=== PATIENT | male | born 1965 | race Caucasian/White ===

== ENCOUNTER → 2020-09-02 | Outpatient (CLI) | payer BC ==
[2020-09-03 02:56] LABS: C Reactive Protein <0.4 mg/dL (0.0-0.8); Rheumatoid Factor, Qnt 4 IU/mL (0-15)
[2020-09-03 03:43] LABS: Cyclic Citrull Pep IgG Unit <0.5 U/mL; Cyclic Citrullinated Pep IgG NEGATIVE (NEGATIVE)
[2020-09-03 04:30] LABS: Hepatitis B Core IgM Non-Reactive (Non-Reactive); Hepatitis B Surface AB- Quant 3.5 mIU/mL; Hepatitis B Surface Antibody Non-Reactive (Non-Reactive); Hepatitis B Surface Antigen Non-Reactive (Non-Reactive); Hepatitis C IgG Antibody Non-Reactive (Non-Reactive)
== END | disposition home or self-care (01) ==
LOC: LABWHC1 13:59
PROVIDERS: ATTEND Physician Assistant Medical
DX: L40.50 Arthropathic psoriasis, unspecified (principal)
CPT/HCPCS: 36415; 85652; 86140; 86200; 86431; 86480; 86704; 86705; 86706; 86803; 87340

== ENCOUNTER 2023-12-26 16:41 | Inpatient (IN) | payer BC ==
--- NOTE | 2023-12-26 17:31 | ED ---
Neuro HPI - General Chief Complaint: Neuro Symptoms/Deficit Stated Complaint: pos stroke Time Seen by Provider: 12/26/23 17:06 Source: patient, family, RN notes reviewed, old records reviewed Mode of arrival: ambulatory Limitations: no limitations - History of Present Illness Is the patient presenting with stroke symptoms?: No -: minutes(s) Initial Comments: This is a 58-year-old male to the ER for evaluation he does have high blood pressure history coming in for evaluation of difficulty with speech difficulty with train of thought and left-sided arm and leg numbness. Patient symptoms are pretty significant here in the emergency prior to arrival in the emergency department but resolved on arrival to the emergency department. Patient did have significant paralysis of the left upper and left lower extremity as well as difficulty with speech and train of thought. Confusion. Those symptoms have resolved Location: speech, left arm, left leg History of same: No Place: home (Patient was at a restaurant) Severity: severe Improves With: none Worsens With: none Context: sudden onset Associated Symptoms: confusion Treatments Prior to Arrival: none - Related Data Home Medications: Home Medications Medication Instructions Recorded Confirmed Atorvastatin [Lipitor] 20 mg PO HS 02/24/15 12/26/23 Apremilast [Otezla] 30 mg PO BID 12/26/23 12/26/23 Mv-Min/Folic/K1/Lycopen/Lutein 1 tab PO DAILY 12/26/23 12/26/23 [Centrum Silver Men Tablet] Zinc Gluconate [Zinc] 50 mg PO DAILY 12/26/23 12/26/23 amLODIPine 10 mg PO HS 12/26/23 12/26/23 lisinopriL [Zestril] 20 mg PO DIRECTED 12/26/23 12/26/23 Allergies/Adverse Reactions: Allergies Allergy/AdvReac Type Severity Reaction Status Date / Time No Known Allergies Allergy Verified 12/26/23 18:42 Review of Systems ROS Statement: Those systems with pertinent positive or pertinent negative responses have been documented in the HPI. ROS Other: All systems not noted in ROS Statement are negative. General Exam Limitations: no limitations Stroke MDM - Lab Data Result diagrams: 12/29/23 09:20 12/29/23 10:26 Lab Results 12/26/23 12/26/23 12/26/23 Range/Units 16:50 16:50 16:50 WBC 6.4 (3.8-10.6) k/uL RBC 5.25 (4.30-5.90) m/uL Hgb 15.6 (13.0-17.5) gm/dL Hct 45.3 (39.0-53.0) % MCV 86.1 (80.0-100.0) fL MCH 29.6 (25.0-35.0) pg MCHC 34.4 (31.0-37.0) g/dL RDW 13.7 (11.5-15.5) % Plt Count 349 (150-450) k/uL MPV 7.2 Neutrophils % 62 % Lymphocytes % 27 % Monocytes % 6 % Eosinophils % 1 % Basophils % 1 % Neutrophils # 4.0 (1.3-7.7) k/uL Lymphocytes # 1.7 (1.0-4.8) k/uL Monocytes # 0.4 (0-1.0) k/uL Eosinophils # 0.1 (0-0.7) k/uL Basophils # 0.0 (0-0.2) k/uL PT 10.2 (10.0-12.5) sec INR 0.9 (<1.2) APTT 25.3 (22.0-30.0) sec Sodium 142 (137-145) mmol/L Potassium 4.0 (3.5-5.1) mmol/L Chloride 104 (98-107) mmol/L Carbon Dioxide 29 (22-30) mmol/L Anion Gap 9 mmol/L BUN 12 (9-20) mg/dL Creatinine 0.96 (0.66-1.25) mg/dL Est GFR (CKD-EPI)AfAm >90 (>60 ml/min/1.73 sqM) Est GFR (CKD-EPI)NonAf 87 (>60 ml/min/1.73 sqM) Glucose 121 H (74-99) mg/dL Calcium 10.6 H (8.4-10.2) mg/dL Total Bilirubin 0.8 (0.2-1.3) mg/dL AST 28 (17-59) U/L ALT 25 (4-49) U/L Alkaline Phosphatase 53 (38-126) U/L Creatine Kinase 136 (55-170) U/L Troponin I (0.000-0.034) ng/mL Total Protein 8.1 (6.3-8.2) g/dL Albumin 4.8 (3.5-5.0) g/dL 12/26/23 Range/Units 16:50 WBC (3.8-10.6) k/uL RBC (4.30-5.90) m/uL Hgb (13.0-17.5) gm/dL Hct (39.0-53.0) % MCV (80.0-100.0) fL MCH (25.0-35.0) pg MCHC (31.0-37.0) g/dL RDW (11.5-15.5) % Plt Count (150-450) k/uL MPV Neutrophils % % Lymphocytes % % Monocytes % % Eosinophils % % Basophils % % Neutrophils # (1.3-7.7) k/uL Lymphocytes # (1.0-4.8) k/uL Monocytes # (0-1.0) k/uL Eosinophils # (0-0.7) k/uL Basophils # (0-0.2) k/uL PT (10.0-12.5) sec INR (<1.2) APTT (22.0-30.0) sec Sodium (137-145) mmol/L Potassium (3.5-5.1) mmol/L Chloride (98-107) mmol/L Carbon Dioxide (22-30) mmol/L Anion Gap mmol/L BUN (9-20) mg/dL Creatinine (0.66-1.25) mg/dL Est GFR (CKD-EPI)AfAm (>60 ml/min/1.73 sqM) Est GFR (CKD-EPI)NonAf (>60 ml/min/1.73 sqM) Glucose (74-99) mg/dL Calcium (8.4-10.2) mg/dL Total Bilirubin (0.2-1.3) mg/dL AST (17-59) U/L ALT (4-49) U/L Alkaline Phosphatase (38-126) U/L Creatine Kinase (55-170) U/L Troponin I <0.012 (0.000-0.034) ng/mL Total Protein (6.3-8.2) g/dL Albumin (3.5-5.0) g/dL - NIH Stroke Scale 1a. Level of Consciousness: (0) alert 1b. LOC Questions: (0) answers correctly 1c. LOC Commands: (0) performs tasks correctly 2. Best Gaze: (0) normal 3. Visual: (0) no visual loss 4. Facial Palsy: (0) normal symmetrical movement 5a. Motor Arm Left: (0) no drift 5b. Motor Arm Right: (0) no drift 6a. Motor Leg Left: (0) no drift 6b. Motor Leg Right: (0) no drift 7. Limb Ataxia: (0) absent 8. Sensory: (0) normal 9. Best Language: (0) no aphasia 10. Dysarthria: (0) normal 11. Extinction/Inattention: (0) no abnormality - Thrombolytic Inclusion/Exclusion Thrombolytic Inclusion Criteria: Symptom Onset < 4.5 h - Medical Decision Making 58 male was found to have significant ICA occlusion after TIA, patient did complete and continues to have complete resolution of symptoms here in the ER but will be admitted for vascular surgery consultation - Radiology Data Radiology results: report reviewed (CT brain negative for acute disease CT head positive for ICA occlusion), image reviewed - EKG Data -: EKG Interpreted by Me (EKG is sinus 78 RI 140 QRS 102 QTc 414) Past Medical History Past Medical History: Osteoarthritis (OA) History of Any Multi-Drug Resistant Organisms: None Reported Past Surgical History: Orthopedic Surgery Additional Past Surgical History / Comment(s): arthroscopy knee Past Anesthesia/Blood Transfusion Reactions: No Reported Reaction Past Alcohol Use History: Occasional Past Drug Use History: None Reported - Past Family History Mother Family Medical History: Cancer Course Vital Signs 12/26/23 12/26/23 12/26/23 16:47 20:00 21:00 Temperature 98.1 F Pulse Rate 91 65 65 Respiratory 20 12 14 Rate Blood Pressure 174/103 137/98 153/94 O2 Sat by Pulse 99 99 Oximetry - Reevaluation(s) Reevaluation #1: 12/26/23 18:59 Medical record is reviewed Reevaluation #2: 12/26/23 18:59 Patient symptoms remain resolved Reevaluation #3: 12/26/23 18:59 Patient informed of results questions answered Reevaluation #4: Was pt. sent in by a medical professional or institution (, PA, CONCRETE SWIMMING POOL INSTALLER, urgent care, hospital, or detention...) When possible be specific @ -no Did you speak to anyone other than the patient for history (EMS, parent, family, police, friend...)? What history was obtained from this source @ -no Did you review nursing and triage notes (agree or disagree)? Why? @ -agree Are old charts reviewed (outside hosp., previous admission, EMS record, old EKG, old radiological studies, urgent care reports/EKG's, detention records)? Report findings @ -yes Differential Diagnosis (chest pain, altered mental status, abdominal pain women, abdominal pain men, vaginal bleeding, weakness, fever, dyspnea, syncope, headache, dizziness, GI bleed, back pain, seizure, CVA, palpatations, mental health, musculoskeletal)? @ -prior EKG interpreted by me (3pts min.). @ -yes X-rays interpreted by me (1pt min.). @ -no CT interpreted by me (1pt min.). @ -Yes significant for severe severe RCA occlusion U/S interpreted by me (1pt. min.). @ -no What testing was considered but not performed or refused? (CT, X-rays, U/S, labs)? Why? @ -none What meds were considered but not given or refused? Why? @ -none Did you discuss the management of the patient with other professionals (professionals i.e. , PA, CONCRETE SWIMMING POOL INSTALLER, lab, RT, psych nurse, social studies teacher, qa manager, teacher, ground intelligence officer, case packer and sealer)? Give summary @ -no Was smoking cessation discussed for >3mins.? @ -no Was critical care preformed (if so, how long)? @ -yes31 Were there social determinants of health that impacted care today? How? (Homelessness, low income, unemployed, alcoholism, drug addiction, transportatio n, low edu. Level, literacy, decrease access to med. care, skilled nursing, rehab)? @ -none Was there de-escalation of care discussed even if they declined (Discuss DNR or withdrawal of care, Hospice)? DNR status @ -no What co-morbidities impacted this encounter? (DM, HTN, Smoking, COPD, CAD, Cancer, CVA, ARF, Chemo, Hep., AIDS, mental health diagnosis, sleep apnea, morbid obesity)? @ -none Was patient admitted / discharged? Hospital course, mention meds given and route, prescriptions, significant lab abnormalities, going to OR and other pertinent info. @ - 58 male was found to have significant ICA occlusion after TIA, patient did complete and continues to have complete resolution of symptoms here in the ER but will be admitted for vascular surgery consultation Admitted Undiagnosed new problem with uncertain prognosis? @ -no Drug Therapy requiring intensive monitoring for toxicity (Heparin, Nitro, Insulin, Cardizem)? @ -no Were any procedures done? @ -no Diagnosis/symptom? @ -TIA with ICA occlusion Acute, or Chronic, or Acute on Chronic? @ -Acute Uncomplicated (without systemic symptoms) or Complicated (systemic symptoms)? @ -Complicated Side effects of treatment? @ -no Exacerbation, Progression, or Severe Exacerbation? @ -exacerbation Poses a threat to life or bodily function? How? (Chest pain, [place], [place], pneumonia, PE, COPD, DKA, ARF, appy, cholecystitis, CVA, Diverticulitis, Homicidal, Suicidal, threat to staff... and all critical care pts) @ -yes significant TIA with ICA occlusion Reevaluation #5: Differential CVA Ischemic stroke, hemorrhagic stroke, brain tumor, atypical migraine, Wernicke's encephalopathy, seizure, multiple sclerosis, meningitis, encephalitis, hypoglycemia, Guillain-Estrada, electrolytes disturbance, myasthenia gravis.... This is not meant to be an all-inclusive list - Consultations Consultation #1: Spoke with sound who agrees to admit this patient Critical Care Time Critical Care Time: Yes Total Critical Care Time: 31 Disposition Clinical Impression: Transient cerebral ischemia, ICAO (internal carotid artery occlusion) Disposition: ADMITTED IP TO THIS HOSP Condition: Fair Is patient prescribed a controlled substance at d/c from ED?: No Time of Disposition: 20:20
[2023-12-26 18:02] LABS: ALT 25 U/L (4-49); AST 28 U/L (17-59); African American GFR (CKD) >90 (>60 ml/min/1.73 sqM); Albumin 4.8 g/dL (3.5-5.0); Alkaline Phosphatase 53 U/L (38-126); Anion Gap 9 mmol/L; Basophils % (A) 1 %; Blood Urea Nitrogen 12 mg/dL (9-20); Calcium 10.6 mg/dL (8.4-10.2); Carbon Dioxide 29 mmol/L (22-30); Chloride 104 mmol/L (98-107); Creatine Kinase 136 U/L (55-170); Eosinophils # (A) 0.1 k/uL (0-0.7); Eosinophils % (A) 1 %; Glucose 121 mg/dL (74-99); HCT 45.3 % (39.0-53.0); HGB 15.6 gm/dL (13.0-17.5); Lymphocytes # (A) 1.7 k/uL (1.0-4.8); Lymphocytes % (A) 27 %; MCH 29.6 pg (25.0-35.0); MCHC 34.4 g/dL (31.0-37.0); MCV 86.1 fL (80.0-100.0); Mean Platelet Volume 7.2; Monocytes # (A) 0.4 k/uL (0-1.0); Monocytes % (A) 6 %; Neutrophils % (A) 62 %; Non-African American GFR(CKD) 87 (>60 ml/min/1.73 sqM); Platelet Count 349 k/uL (150-450); RBC 5.25 m/uL (4.30-5.90); RDW 13.7 % (11.5-15.5); Sodium 142 mmol/L (137-145); Total Bilirubin 0.8 mg/dL (0.2-1.3); Total Protein 8.1 g/dL (6.3-8.2); WBC 6.4 k/uL (3.8-10.6)
[2023-12-26 18:09] LABS: INR 0.9 (<1.2); Partial Thromboplastin Time 25.3 sec (22.0-30.0); Prothrombin Time 10.2 sec (10.0-12.5)
[2023-12-26] MEDS: SODIUM CHLORIDE 0.9% 1,000 ML IV STA (18:42)
--- NOTE | 2023-12-26 19:17 | CT ---
EXAMINATION TYPE: CT brain wo con CT DLP: 1111.6 mGycm, Automated exposure control for dose reduction was used. DATE OF EXAM: 12/26/2023 6:21 PM COMPARISON: None. CLINICAL INDICATION:Male, 58 years old with history of Neuro deficit, acute, stroke suspected, left s ided weakness, cva TECHNIQUE: Brain: Axial CT images of the brain were obtained with coronal and sagittal reformats created and rev iewed. Contrast used: None. Oral contrast used: None. FINDINGS: Extra-axial spaces: No abnormal extra-axial fluid collections. Ventricular system: Within normal limits. Cerebral parenchyma: No increased attenuation to suggest acute intraparenchymal hemorrhage. The gra y-white matter interface appears maintained. No significant atrophy. White matter unremarkable by C T. Cerebellum: No acute abnormality. Mass effect: No evidence of mass effect or midline shift. Intracranial vasculature: Unremarkable Soft tissues: No acute or concerning abnormality. Visualized orbits: Orbital contents appear grossly intact. Calvarium/osseous structures: No evidence of calvarial fracture. Paranasal sinuses and mastoid air cells: Clear. Mild nasal septal deviation towards the right at its midportion with small bony spur. MRI is more sensitive for detecting acute processes such as infarct, and may be considered if clinica lly warranted. IMPRESSION: No acute intracranial CT abnormality.
--- NOTE | 2023-12-26 19:55 | CT ---
EXAMINATION TYPE: CT angio head neck DATE OF EXAM: 12/26/2023 6:41 PM COMPARISON: . CLINICAL INDICATION:Male, 58 years old with history of Neuro deficit, acute, stroke suspected; PHH, l eft sided weakness, cva TECHNIQUE: Axially acquired helical CT angiogram of the head and neck was obtained with contrast. Axi al images are supplemented with 3D reconstructions which [facility] NASCET criteria used. Contrast used: 65ml mL of Isovue 370 with IV Contrast, Oral contrast used: None. CT DLP: 412.5 mGycm, Automated exposure control for dose reduction was used. FINDINGS: CTA Neck: There is a 4 vessel branch pattern. Brachiocephalic artery, left common carotid artery, left vertebra l artery, left subclavian artery. Atherosclerotic plaque is present in the aortic arch. There is no significant plaque or stenosis at the origins of the branch vessels. No aortic aneurysm or dissectio n. Right carotid system: The brachiocephalic artery is patent. There is mild calcification of the proxim al right subclavian artery without significant stenosis. The common carotid artery appears patent unt il the bifurcation. There is heavy mixed soft and calcified plaque which causes severe stenosis of th e proximal ICA. While difficult to determine with certainty, there is believed to be a tiny string si gn of preserved flow and after a length of about 9 mm, the vessel is again seen to be opacified and c ontinues to be to the skull base. ECA is patent. Left carotid system: The common carotid is patent to the bifurcation. The bifurcation is patent with small calcified plaque at the bifurcation and proximal ICA causing less than 50% diameter stenosis, h emodynamically insignificant. The vessels are patent to the skull base, and is larger in caliber than the right ICA. ECA is patent. Origin of the right vertebral shows small amount of calcified plaque without significant stenosis. Le ft vertebral arises from the arch without significant stenosis. Both vertebrals are then normally pat ent to the skull base. They are essentially codominant. Other: Neck soft tissues show no acute abnormality. Thyroid appears somewhat heterogeneous with sever al hypodense micronodules throughout and a coarse calcification on the right. Airway is patent. There are moderate degenerative changes of the cervical spine without suggestion of acute bony abnormality or critical canal stenosis. Remote appearing compression fracture deformity of T4 with mild/moderate anterior wedging. Straightening with mild reversal of the normal cervical lordosis is likely degener ative. Included lung apices show no acute abnormality. CTA Head: The intracranial vertebral arteries are patent, essentially codominant. Basilar artery is unremarkabl e. The bifurcation is patent and shows no evidence of aneurysm. Bilateral corporation secretary are patent as seen. Th ere are small patent bilateral posterior communicating arteries. Mild calcifications of the siphon portions of the ICAs without significant stenosis seen. Bilateral c arotid termini are patent, bilateral ACAs are patent but the A1 segment on the right is slightly smal ler than the left. There is a widely patent anterior communicating artery. The ACAs are thereafter no rmally patent. On the left, there appear to be essentially duplicated MCA's, one appears to arise fro m the terminus and one appears to arise from the proximal KAJAL. Both of these appear patent with unrem arkable distal arborization pattern. On the right, the MCA M1 segment is patent. The M2, M3, M4 segme nts appear to be patent and enhancing. An inferior cortical branch is less well visualized but appear s to be patent. No intracranial large vessel occlusion, hemodynamically significant stenosis, aneurysm, dissection, o r arteriovenous malformation is shown. The dural venous sinuses appear grossly patent without evidence of thrombosis. Other: Please refer to same-day CT head report.. IMPRESSION: CTA neck: 1. Heavy mixed calcified plaque in the proximal right ICA, appears nearly occlusive with minimal rem aining string of flow believed to present. Recommend vascular surgery consultation as soon as possibl e. 2. Mild mostly calcified plaque in the proximal left ICA without significant stenosis. 3. No evidence of dissection or pseudoaneurysm in the carotid or vertebral arteries in the neck. CTA head: 1. No intracranial large vessel occlusion, significant stenosis, or sizable aneurysm detected in the limits of CTA.
[2023-12-26] MEDS: ASPIRIN 325 MG TAB PO STA (21:03)
[2023-12-26] MEDS: ASPIRIN 325 MG TAB PO SCH (21:03)
[2023-12-26] MEDS: SODIUM CHLORIDE 0.9% 1,000 ML IV SCH (21:04)
[2023-12-26] MEDS: ATORVASTATIN 80 MG TAB PO SCH (21:07)
[2023-12-27] MEDS: TICAGRELOR 90 MG TAB PO STA (00:05)
--- NOTE | 2023-12-27 04:51 | P.HPIM ---
History of Present Illness H&P Date: 12/26/23 Chief Complaint: Concern regarding stroke 58-year-old male with hypertension Patient was at home reading a book when suddenly in the evening he had an episode where he describes his whole left side was seizing and cramping along with some slurred speech and word finding difficulties all lasted less than 1 minute upon mentioning that his she notified EMS upon their arrival he was evaluated given the option of being taken to the hospital or family takes him to the hospital he decided to go with his and was brought in here for evaluation. Patient denies any headache double vision changes in hearing denies any chest pain trouble breathing nausea vomiting denies any abdominal pain changes in bowel or urinary habits. Patient denies any falls or head injury. Denies any history of stroke or heart attack. Patient reports that symptoms completely resolved after [address] imaging done in the ED for code stroke showed nearly occluded proximal right ICA Patient denies tobacco smoking illicit drugs or heavy alcohol review of systems Pertinent positives as noted in HPI. All other systems were reviewed and are negative on exam Constitutional: No acute distress, conversant, pleasant Eyes: Anicteric sclerae, moist conjunctiva, Pupils equal round reactive to light ENMT: NC/AT Oropharynx clear, no erythema, or exudates Neck: Supple, no masses, or JVD No carotid bruits No thyromegaly Lungs: Clear to auscultation Clear to percussion Normal respiratory effort, no accessory muscle use Cardiovascular: Heart regular in rate and rhythm, No murmurs, gallops, or rubs No peripheral edema Abdominal: Soft Nontender, no guarding, rebound or rigidity Abdomen moving with respiration Normoactive bowel sounds Extremities: No digital cyanosis No clubbing Pedal pulses intact and symmetrical Radial pulses intact and symmetrical No calf tenderness Psychiatric: Alert and oriented to person, place and time Appropriate affect fair judgement Neuro Muscles Strength 5/5 in all 4 extremities Sensation to light touch grossly present throughout Cranial nerves II-XII grossly intact Finger-nose exam intact heel aguilar exam intact Past Medical History Past Medical History: Osteoarthritis (OA) History of Any Multi-Drug Resistant Organisms: None Reported Past Surgical History: Orthopedic Surgery Additional Past Surgical History / Comment(s): arthroscopy knee Past Anesthesia/Blood Transfusion Reactions: No Reported Reaction Past Alcohol Use History: Occasional Past Drug Use History: None Reported - Past Family History Mother Family Medical History: Cancer Medications and Allergies Home Medications Medication Instructions Recorded Confirmed Type Atorvastatin [Lipitor] 20 mg PO HS 02/24/15 12/26/23 History Apremilast [Otezla] 30 mg PO BID 12/26/23 12/26/23 History Mv-Min/Folic/K1/Lycopen/Lutein 1 tab PO DAILY 12/26/23 12/26/23 History [Centrum Silver Men Tablet] Zinc Gluconate [Zinc] 50 mg PO DAILY 12/26/23 12/26/23 History amLODIPine 10 mg PO HS 12/26/23 12/26/23 History lisinopriL [Zestril] 20 mg PO DIRECTED 12/26/23 12/26/23 History Allergies Allergy/AdvReac Type Severity Reaction Status Date / Time No Known Allergies Allergy Verified 12/26/23 18:42 Physical Exam Vitals: Vital Signs Temp Pulse Resp BP Pulse Ox 12/26/23 16:47 98.1 F 91 20 174/103 99 Intake and Output 12/26/23 12/26/23 12/26/23 06:59 14:59 22:59 Other: Weight 70.307 kg Results CBC & Chem 7: 12/26/23 16:50 12/26/23 16:50 Labs: Abnormal Lab Results - Last 24 Hours (Table) 12/26/23 Range/Units 16:50 Glucose 121 H (74-99) mg/dL Calcium 10.6 H (8.4-10.2) mg/dL Assessment and Plan Assessment: 58-year-old male with hypertension coming in for evaluation of sudden onset left-sided cramping and slurred speech symptoms has resolved after 1 minute I discussed case with ED doctor and accepted the admission for TIA for further neurologic workup with anticipated length stay less than [address] of the brain showed no acute intracranial pathology CT of the head and neck showed near occlusion of the right internal carotid artery Vascular surgery consult Neurology consult Check echocardiogram Check lipid profile Aspirin and statin Fall precautions PT/OT eval Monitor vital signs Cardiac monitoring Hypercalcemia Calcium 10.6 Continue with IV fluid hydration normal saline 100 cc/h Follow-up levels in the morning if continues to be elevated consider further workup Full code DVT prophylaxis heparin subcu 3 times daily Rest of the blood work overall unremarkable Hemoglobin 15.6 white count 6.4 BUN 12 creatinine 0.96
[2023-12-27] MEDS: CLOPIDOGREL 75 MG TAB PO SCH (07:49)
[2023-12-27] MEDS: lisinopriL 20 MG TAB PO SCH (07:49)
[2023-12-27] MEDS ORDERED: HEPARIN SODIUM 1,000 UN/ML (10ML VL) IV PRN (08:29)
[2023-12-27] MEDS: HEPARIN SODIUM 1,000 UN/ML (10ML VL) IV ONE (08:51)
[2023-12-27] MEDS: ASPIRIN 81 MG PO SCH (08:51)
[2023-12-27] MEDS: HEPARIN SOD,PORK IN 0.45% NACL 25,000 UNIT in 0.45% NACL 1 250ML.BAG IV SCH (08:52)
[2023-12-27] MEDS ORDERED: ENOXAPARIN 40 MG/0.4 ML SYRINGE SQ SCH (09:00)
--- NOTE | 2023-12-27 09:19 | US ---
EXAMINATION TYPE: US carotid duplex BILAT DATE OF EXAM: 12/27/2023 COMPARISON: CLINICAL INDICATION: Male, 58 years old with history of evaluate for right ICA stenosis, occlusion; L eft side tingling yesterday. No hx TIA. HTN on meds. Nonsmoker. TECHNIQUE: Carotid duplex ultrasound examination. Indirect Doppler criteria was utilized. FINDINGS: EXAM MEASUREMENTS: RIGHT: Peak Systolic Velocity (PSV) cm/sec ----- Right CCA: 52.3 ----- Right ICA: 113.4 ----- Right ECA: 105.6 ICA/CCA ratio: 2.2 RIGHT: End Diastole cm/sec ----- Right CCA: 7.8 ----- Right ICA: 33.1 ----- Right ECA: 17.6 LEFT: Peak Systolic Velocity (PSV) cm/sec ----- Left CCA: 71.3 ----- Left ICA: 91.9 ----- Left ECA: 110.8 ICA/CCA ratio: 1.3 LEFT: End Diastole cm/sec ----- Left CCA: 23.0 ----- Left ICA: 39.1 ----- Left ECA: 20.4 VERTEBRALS (direction of flow): Right Vertebral: Antegrade Left Vertebral: Antegrade Rhythm: Normal RFID STRATEGIST NOTES: No elevated velocities. Plaque seen bilateral bulbs extending into proximal ICA. IMPRESSION: Less than 50% stenosis of the bilateral carotid bifurcations. Criteria for Assigning % of Stenosis / Diameter reduction (Estimation based on the indirect measurements of the internal carotid artery velocities (ICA PSV). 1. Normal (no stenosis)=ICA PSV < 125 cm/s: ratio < 2.0: ICA EDV<40 cm/s. 2. Less than 50% stenosis=ICA PSV < 125 cm/s: ratio < 2.0: ICA EDV<40 cm/s. 3. 50 to 69% stenosis=ICA PSV of 125 to 230 cm/s: ration 2.0 ? 4.0: ICA EDV 40-100 cm/s. 4. Greater than 70% stenosis to near occlusion= ICA PSV > 230 cm/s: ratio > 4.0: ICA EDV > 100 cm/s. 5. Near occlusion= ICA PSV velocities may be low or undetectable: variable ratio and ICA EDV. 6. Total occlusion=unable to detect flow.
[2023-12-27 09:31] LABS: Basophils % (A) 1 %; Eosinophils # (A) 0.1 k/uL (0-0.7); Eosinophils % (A) 1 %; HCT 43.8 % (39.0-53.0); HGB 14.7 gm/dL (13.0-17.5); Lymphocytes # (A) 1.3 k/uL (1.0-4.8); Lymphocytes % (A) 23 %; MCH 29.1 pg (25.0-35.0); MCHC 33.4 g/dL (31.0-37.0); MCV 87.1 fL (80.0-100.0); Mean Platelet Volume 7.3; Monocytes # (A) 0.3 k/uL (0-1.0); Monocytes % (A) 6 %; Neutrophils # (A) 3.7 k/uL (1.3-7.7); Neutrophils % (A) 67 %; Platelet Count 337 k/uL (150-450); RBC 5.03 m/uL (4.30-5.90); RDW 13.8 % (11.5-15.5); WBC 5.6 k/uL (3.8-10.6)
[2023-12-27 09:44] LABS: ALT 22 U/L (4-49); AST 29 U/L (17-59); African American GFR (CKD) >90 (>60 ml/min/1.73 sqM); Albumin 4.2 g/dL (3.5-5.0); Alkaline Phosphatase 60 U/L (38-126); Anion Gap 10 mmol/L; Blood Urea Nitrogen 13 mg/dL (9-20); Calcium 9.6 mg/dL (8.4-10.2); Carbon Dioxide 19 mmol/L (22-30); Chloride 109 mmol/L (98-107); Glucose 152 mg/dL (74-99); Magnesium 2.2 mg/dL (1.6-2.3); Non-African American GFR(CKD) >90 (>60 ml/min/1.73 sqM); Potassium 3.6 mmol/L (3.5-5.1); Sodium 138 mmol/L (137-145); Total Bilirubin 1.2 mg/dL (0.2-1.3); Total Protein 7.2 g/dL (6.3-8.2)
[2023-12-27 10:04] LABS: INR 1.1 (<1.2); Prothrombin Time 11.9 sec (10.0-12.5)
[2023-12-27 10:27] LABS: Partial Thromboplastin Time >200.0 sec (22.0-30.0)
--- NOTE | 2023-12-27 12:19 | P.GSCN ---
History of Present Illness Consult date: 12/27/23 Reason for Consult: ICA occlusion Requesting physician: Brian Omer History of present illness: This is a pleasant 58-year-old male with a past medical history including hypertension and psoriatic arthritis. Patient presented to the emergency department yesterday evening with complaints of left-sided weakness and difficulty with speech. Symptoms had resolved by the time he reached the emergency department. He underwent CT of the brain with no acute findings. Also had a CT angiogram head and neck that showed possible occlusion to severe ICA stenosis of the right internal carotid artery. Vascular surgery was consulted for ICA occlusion. Patient currently denies any focal deficits. He is alert and oriented x 3. Speech is normal, he is able to follow commands. He does state that he takes Otezla for psoriatic arthritis. He has a history of hypertension which he has had for many years. States he has never been a smoker. Denies any previous history of TIA or stroke. Denies any shortness of breath, chest pain, abdominal pain, nausea or vomiting. Review of Systems A 14 point review systems was completed all pertinent positives and negatives as stated in the HPI. Past Medical History Past Medical History: Osteoarthritis (OA) History of Any Multi-Drug Resistant Organisms: None Reported Past Surgical History: Orthopedic Surgery Additional Past Surgical History / Comment(s): arthroscopy knee Past Anesthesia/Blood Transfusion Reactions: No Reported Reaction Past Alcohol Use History: Occasional Past Drug Use History: None Reported - Past Family History Mother Family Medical History: Cancer Medications and Allergies Home Medications Medication Instructions Recorded Confirmed Type Atorvastatin [Lipitor] 20 mg PO HS 02/24/15 12/26/23 History Apremilast [Otezla] 30 mg PO BID 12/26/23 12/26/23 History Mv-Min/Folic/K1/Lycopen/Lutein 1 tab PO DAILY 12/26/23 12/26/23 History [Centrum Silver Men Tablet] Zinc Gluconate [Zinc] 50 mg PO DAILY 12/26/23 12/26/23 History amLODIPine 10 mg PO HS 12/26/23 12/26/23 History lisinopriL [Zestril] 20 mg PO DIRECTED 12/26/23 12/26/23 History Allergies Allergy/AdvReac Type Severity Reaction Status Date / Time No Known Allergies Allergy Verified 12/26/23 18:42 Surgical - Exam Vital Signs Temp Pulse Resp BP Pulse Ox 98.1 F 91 20 174/103 99 12/26/23 16:47 12/26/23 16:47 12/26/23 16:47 12/26/23 16:47 12/26/23 16:47 General appearance: The patient is alert, oriented, appears in no acute distress. HET: Head is normocephalic and atraumatic. Pupils are equal and reactive. Neck: Supple. No carotid bruit. Heart: Regular. Lungs: Equal expansion, normal respiratory effort. Abdomen: Soft, nontender, nondistended. Extremities: Normal skin color and turgor. Palpable DP pulses. Neurological: No focal deficits. Strength and sensation are grossly intact. Results - Labs 12/27/23 08:59 12/27/23 08:59 Abnormal Lab Results - Last 24 Hours (Table) 12/26/23 Range/Units 16:50 Glucose 121 H (74-99) mg/dL Calcium 10.6 H (8.4-10.2) mg/dL Diabetes panel 12/26/23 Range/Units 16:50 Sodium 142 (137-145) mmol/L Potassium 4.0 (3.5-5.1) mmol/L Chloride 104 (98-107) mmol/L Carbon Dioxide 29 (22-30) mmol/L BUN 12 (9-20) mg/dL Creatinine 0.96 (0.66-1.25) mg/dL Glucose 121 H (74-99) mg/dL Calcium 10.6 H (8.4-10.2) mg/dL AST 28 (17-59) U/L ALT 25 (4-49) U/L Alkaline Phosphatase 53 (38-126) U/L Total Protein 8.1 (6.3-8.2) g/dL Albumin 4.8 (3.5-5.0) g/dL Calcium panel 12/26/23 Range/Units 16:50 Calcium 10.6 H (8.4-10.2) mg/dL Albumin 4.8 (3.5-5.0) g/dL Pituitary panel 12/26/23 Range/Units 16:50 Sodium 142 (137-145) mmol/L Potassium 4.0 (3.5-5.1) mmol/L Chloride 104 (98-107) mmol/L Carbon Dioxide 29 (22-30) mmol/L BUN 12 (9-20) mg/dL Creatinine 0.96 (0.66-1.25) mg/dL Glucose 121 H (74-99) mg/dL Calcium 10.6 H (8.4-10.2) mg/dL Adrenal panel 12/26/23 Range/Units 16:50 Sodium 142 (137-145) mmol/L Potassium 4.0 (3.5-5.1) mmol/L Chloride 104 (98-107) mmol/L Carbon Dioxide 29 (22-30) mmol/L BUN 12 (9-20) mg/dL Creatinine 0.96 (0.66-1.25) mg/dL Glucose 121 H (74-99) mg/dL Calcium 10.6 H (8.4-10.2) mg/dL Total Bilirubin 0.8 (0.2-1.3) mg/dL AST 28 (17-59) U/L ALT 25 (4-49) U/L Alkaline Phosphatase 53 (38-126) U/L Total Protein 8.1 (6.3-8.2) g/dL Albumin 4.8 (3.5-5.0) g/dL - Imaging Comments: CTA head and neck reports heavy mixed calcified plaque in the proximal right ICA, appears nearly occlusive with minimal remaining string of flow believed to be present. Recommend vascular surgery consultation is soon as possible. Mild mostly calcified plaque in the proximal left ICA without significant stenosis. No evidence of dissection or pseudoaneurysm in the carotid or vertebral arteries in the neck. CT head reported no intracranial large vessel occlusion, significant stenosis or sizable aneurysm detected in the limits of the CTA Brain CT reports no acute intracranial CT abnormality. Carotid duplex reports less than 50% stenosis of bilateral carotid bifurcations Assessment and Plan Assessment: 1. Severe symptomatic right internal carotid artery stenosis per CT angiogram 2. Discordant findings of carotid stenosis on carotid duplex 3. Left-sided weakness and difficulty with speech, possible TIA 4. Hypertension 5. Psoriatic arthritis Plan: 1. Carotid duplex ordered 2. Heparin drip started 3. Continue aspirin and Plavix as ordered 4. Patient tentatively scheduled for right carotid endarterectomy with patch angioplasty on 12/31/2023 5. Continue with recommendations from neurology 6. Rest of medical management per primary medical team Thank you for this consultation, we will continue to follow. The impression and plan of care has been dictated as directed. I performed a history and examination of this patient, discussed the same with the dictator. I agree with the dictator's note ,documented as a scribe. Any additional findings or plans will be noted.
--- NOTE | 2023-12-27 12:35 | CA ---
Transthoracic Echo Report Name: Mitchell Ku Age: 58 Gender: M : 1965 Exam Date: 12/27/2023 09:22 Exam Location: [facility] Ht (in): 66 Wt (lb): 155 Ordering Physician: Lilibeth Corcoran MD Attending/Referring Phys: [employer] Lieutenant Deon Crocker RDCS Procedure CPT: Indications: tia Cardiac Hx: Technical Quality: Contrast 1: Total Dose (mL): Contrast 2: Total Dose (mL): MEASUREMENTS (Male / Female) Normal Values 2D ECHO LV Diastolic Diameter PLAX 4.2 cm 4.2 - 5.9 / 3.9 - 5.3 cm LV Systolic Diameter PLAX 3.0 cm IVS Diastolic Thickness 1.2 cm 0.6 - 1.0 / 0.6 - 0.9 cm LVPW Diastolic Thickness 0.7 cm 0.6 - 1.0 / 0.6 - 0.9 cm LV Relative Wall Thickness 0.5 LA Systolic Diameter LX 2.9 cm 3.0 - 4.0 / 2.7 - 3.8 cm DOPPLER AV Peak Velocity 142.2 cm/s AV Peak Gradient 8.1 mmHg AV Mean Velocity 93.0 cm/s AV Mean Gradient 3.7 mmHg AV Velocity Time Integral 24.0 cm LVOT Peak Velocity 117.9 cm/s LVOT Peak Gradient 5.6 mmHg LVOT Velocity Time Integral 25.3 cm MV Area PHT 4.1 cm??? Mitral E Point Velocity 91.7 cm/s Mitral A Point Velocity 78.3 cm/s Mitral E to A Ratio 1.2 MV Deceleration Time 183.7 ms FINDINGS Left Ventricle Mildly increased septal wall thickness. Left ventricular ejection fraction is estimated at 55 %. Normal left ventricular systolic function with no obvious regional wall motion abnormalities. Right Ventricle Normal right ventricular size. Right Atrium Normal right atrial size. Left Atrium Normal left atrial size. Mitral Valve Trace mitral regurgitation. Aortic Valve No aortic valve stenosis or regurgitation. Tricuspid Valve Trace tricuspid regurgitation. Pulmonic Valve No pulmonic regurgitation. Pericardium No pericardial effusion. Aorta Normal size aortic root and proximal ascending aorta. CONCLUSIONS Left ventricular EF 55% Trace mitral regurgitation Trace tricuspid regurgitation No pericardial effusion Previewed by: Dr. Elvis Gong DO (Electronically Signed) Final Date: 27 December 2023 12:35
--- NOTE | 2023-12-27 14:44 | P.PN ---
Subjective Progress Note Date: 12/27/23 Hospital course: Patient is a very pleasant 58-year-old male with a past medical history of hypertension, hyperlipidemia, and psoriatic arthritis. He presented to the emergency department on 12/26/2023 with a chief complaint of left upper and lower extremity numbness and cramping along with slurred speech and word finding difficulties. He underwent evaluation in the emergency department. Vital signs upon arrival show blood pressure 174/103, heart rate 91, respiratory rate 20, temp 98.1 F, and SpO2 of 99% on room air. Blood glucose upon arrival was 121. EKG completed showing normal sinus rhythm at 78 bpm with pronounced Q waves in leads II, III, and aVF. CT brain completed negative for acute intracranial abnormality. Labs completed and reviewed. CBC, coagulation profile, and BMP were unremarkable. Calcium was mildly elevated at 10.6. Liver profile unremarkable. Creatinine kinase 136. Troponin negative at less than 0.012. CTA head and neck completed. CTA head was reported negative for acute intracranial large vessel occlusion, significant stenosis, or sizable aneurysm. CTA neck showing heavily mixed calcified plaque in the proximal right ICA appears nearly occlusive with minimal remaining string of flow believed to be present, mild mostly calcified plaque in the proximal left ICA without significant stenosis, and no evidence of dissection or pseudoaneurysm in the carotid vertebral arteries. Patient was admitted under our services with consultation to neurology and vascular surgery. Physical exam: Patient seen and fully evaluated at the bedside this morning. He was sitting up in the chair and appears to be doing well. Patient denies having any further episodes of left-sided weakness or difficulties with his speech including word finding difficulties. Patient denies having any headache, lightheadedness, dizziness, changes in vision or hearing, chest pain or palpitations, shortness of breath, or experiencing any numbness/tingling/weakness at this time. Vital signs reviewed and stable. General: Nontoxic, no distress and appears stated age. Derm: Skin warm and dry, normal coloration for ethnicity. Head: Atraumatic, normocephalic and symmetric. Eyes: EOMs intact, no lid lag, and anicteric sclera Mouth: no lip lesions, mucus membranes moist Cardiovascular: regular rate and rhythm with normal S1S2, no murmur, positive posterior tibial pulses bilaterally, and cap refill < 2 seconds. Lungs: Respirations even, regular, and unlabored on room air. Lungs CTA bilaterally, no rhonchi, no rales, no wheezing, and no accessory muscle usage. Abdominal: soft, nontender to palpation, no guarding, no appreciable organomegaly Ext: ROM intact. No gross muscle atrophy, no edema, no contractures Neuro: Speech clear, face symmetrical and CN II-XII grossly intact with no noted focal neuro deficits Psych: Alert and oriented to person, place, time, and situation. Appropriate and pleasant affect. Assessment and Plan of Care: Transient episode of left-sided weakness with dysarthria and expressive aphasia, likely TIA Right ICA occlusion -Consult neurology, appreciate recommendations -Vascular surgery following and started patient on heparin infusion along with a spirin and Plavix daily. Tentative plan for right carotid endarterectomy on 12/31/2023. -Carotid Dopplers completed pending results -Echocardiogram revealing a preserved EF of 55% with trace mitral and trace tricuspid regurgitation no pericardial effusion and no other valvular or structural abnormalities reported. -NIH stroke scale with neuro checks every 4 hours and as needed -Daily aspirin 81 mg and atorvastatin 80 mg nightly. -PT/OT consult -Consult to speech and language pathologist. Swallow evaluation. -Fall precautions and provide pt with assistance as needed Hypercalcemia, resolved -Hypercalcemia resolved after gentle IV fluid hydration with repeat calcium level of 9.6. IV fluids discontinued at this time. Hypertension -Continue daily medication regimen with lisinopril 20 mg daily and amlodipine 10 mg nightly. Hyperlipidemia -Continue atorvastatin 80 mg nightly and obtain a lipid profile. Psoriatic arthritis -Hold Otezla at this time. Presurgical clearance -METS score is greater than 4 as patient is able to perform ADLs independently and walk 1-2 blocks and/or up 1 flight of stairs without chest pain or shortness of breath. -NSQIP surgical risk score was calculated. Patient is at a below average risk for serious complication with a risk of 2.2% and average risk of 5.6%, below average risk for cardiac complication with a risk of 0.2% and average risk of 1.1% and below average risk of at 0.1% with average risk being 0.7%. -Echocardiogram, EKG, vitals and laboratory analysis reviewed along with review of patient's history. -Patient is medically optimized and cleared from medical perspective to proceed with planned Right Carotid Endarterectomy without further need of testing or intervention at this time. Data and imaging reviewed: Morning labs reviewed. CBC unremarkable. BMP showing elevated chloride of 109 and bicarb of 19. Hemoglobin A1c 5.6%. Magnesium normal findings at 2.2. Liver profile unremarkable. TSH normal findings at 3.000. Vital signs reviewed. Blood pressure 138/91, heart rate 60, respiratory rate 18, temp 97.9 F, and SpO2 of 99% on room air. Echocardiogram revealing a preserved EF of 55% with trace mitral and trace tricuspid regurgitation no pericardial effusion and no other valvular or structural abnormalities reported. CODE STATUS: Full code DVT prophylaxis: Lovenox Anticipated discharge date: Clinical course to determine Anticipated discharge place: Home Patient was seen independently by Nurse Pracitioner. This document was prepared using [employer] dictation software. Please allow for errors in emergency room nurse, while rare they do occur. Gil Peña NP rendered care for this patient independently, reviewed the findings and plan as documented in the note above. I did not physically speak with or examine the patient on this date. Objective - Vital Signs Vital signs: Vital Signs Temp 98.1 F 12/26/23 16:47 Pulse 60 12/27/23 03:15 Resp 16 12/27/23 03:15 BP 131/83 12/27/23 03:15 Pulse Ox 99 12/27/23 03:15 FiO2 Intake & Output 12/26/23 12/27/23 12/27/23 18:59 06:59 18:59 Weight 70.307 kg 70.307 kg Other: Voiding Method Toilet # Voids 2 - Labs CBC & Chem 7: 12/28/23 09:12 12/27/23 08:59 Labs: Abnormal Lab Results - Last 24 Hours (Table) 12/26/23 Range/Units 16:50 Glucose 121 H (74-99) mg/dL Calcium 10.6 H (8.4-10.2) mg/dL
--- NOTE | 2023-12-27 15:04 | P.CNNES ---
History of Present Illness Consult date: 12/27/23 Requesting physician: Lilibeth Corcoran Reason for Consult: TIA History of Present Illness: Patient is a 58-year-old right-handed male with history of hypertension, hyperlipidemia, came to the hospital yesterday at 4:41 PM for possible TIA. Patient states that yesterday at around 4 PM, he was sitting, reading when he coleman ddenly felt funny, lightheaded, and had a blood rash to his head. Shortly after his left side of the body stopped working, states "seized up". There was no pain but he could not move his left side for about 30 seconds. He tried to talk, was able to talk but it was a struggle. This lasted for another 10 seconds. He also felt hard time breathing through the episode, like he was "gasping for breath". Then he started feeling better. Overall this episode lasted no more than 30 to 45 seconds. He told his , who called the paramedics. When they arrived, all symptoms have resolved. They recommended patient to go to the hospital. Vital signs arrival blood pressure 174/103, which came down to 137/98, pulse rate 91 temperature 98.1. Blood test shows normal CBC PT PTT, normal CMP,'s amaya cium was 10.6 but came down to 9.6. Troponin is negative, TSH normal. EKG shows sinus rhythm. CT head showed no acute intracranial abnormality. I personally reviewed CT head, and there is some suspicious area of hypodensity in the left occipital region. It could be artifactual. There is opacification of the left frontal sinus and some left ethmoid air cells. Patient has history of hypertension for which she takes amlodipine 10 mg. Just yesterday morning he had an appointment with his primary physician, his blood pressure was running high 157/102, and he was started on lisinopril 20 mg which she has not started yet. Patient has hyperlipidemia, on Lipitor 20 mg. Patient does not take any antiplatelet medication. He does have psoriatic arthritis. Patient drinks about 2 beers per day. Denies any heavy alcoholism. Denies any marijuana use. No diabetes. No history of strokes or TIA or seizure. Review of Systems Constitutional: Denies chills, Denies fever Eyes: denies blurred vision, denies diplopia, denies pain, denies loss of peripheral vision Ears: deny: decreased hearing, ear discharge Ears, nose, mouth and throat: Denies headache, Denies sore throat, Denies vertigo Cardiovascular: Reports lightheadedness (with spell, gone now), Denies chest pain, Denies shortness of breath Respiratory: Denies cough, Denies excessive sputum Gastrointestinal: Denies abdominal pain, Denies diarrhea, Denies nausea, Denies vomiting Genitourinary: Denies incontinence, Denies urinary frequency Musculoskeletal: Denies low back pain, Denies neck pain Integumentary: Denies pruritus, Denies rash Neurological: Reports as per HPI Psychiatric: Denies anxiety, Denies depression Hematologic/Lymphatic: Denies easy bleeding, Denies easy bruising Past Medical History Past Medical History: Osteoarthritis (OA) History of Any Multi-Drug Resistant Organisms: None Reported Past Surgical History: Orthopedic Surgery Additional Past Surgical History / Comment(s): arthroscopy knee Past Anesthesia/Blood Transfusion Reactions: No Reported Reaction Past Alcohol Use History: Occasional Past Drug Use History: None Reported - Past Family History Mother Family Medical History: Cancer Medications and Allergies Home Medications Medication Instructions Recorded Confirmed Type Atorvastatin [Lipitor] 20 mg PO HS 02/24/15 12/26/23 History Apremilast [Otezla] 30 mg PO BID 12/26/23 12/26/23 History Mv-Min/Folic/K1/Lycopen/Lutein 1 tab PO DAILY 12/26/23 12/26/23 History [Centrum Silver Men Tablet] Zinc Gluconate [Zinc] 50 mg PO DAILY 12/26/23 12/26/23 History amLODIPine 10 mg PO HS 12/26/23 12/26/23 History lisinopriL [Zestril] 20 mg PO DIRECTED 12/26/23 12/26/23 History Allergies Allergy/AdvReac Type Severity Reaction Status Date / Time No Known Allergies Allergy Verified 12/26/23 18:42 Physical Examination - Vital Signs Vital Signs: Vital Signs Temp Pulse Pulse Resp BP BP Pulse Ox 12/27/23 09:06 99 12/27/23 08:00 97.9 F 60 18 138/91 99 12/27/23 03:15 60 16 131/83 99 12/27/23 00:00 58 L 16 150/90 98 12/26/23 21:30 69 18 169/89 12/26/23 21:00 65 14 153/94 99 12/26/23 20:00 65 12 137/98 12/26/23 16:47 98.1 F 91 20 174/103 99 Intake and Output 12/26/23 12/27/23 12/27/23 22:59 06:59 14:59 Intake Total 118 Balance 118 Intake: Oral 118 Other: Voiding Method Toilet Toilet Toilet # Voids 2 Weight 70.307 kg Patient is very pleasant middle-aged male, in no acute distress. Patient is alert awake oriented to time place and person. Speech and language functions are normal. Patient can name and repeat very well. No aphasia or dysarthria. Attention, concentration and fund of knowledge is adequate. On cranial nerve examination, pupils are equal, round and reacting to light, visual kenney are full on confrontation, with no neglect on double simultaneous stimulation. Extraocular muscles are intact with no nystagmus. Face is symmetric, tongue protrudes to the midline. Palatal elevation and sensation normal, hearing and shoulder shrug normal, facial sensation normal. On muscle strength testing, there is no pronator drift and the strength is n ormal in arms and legs distally and proximally. Deep tendon reflexes are (right/left) biceps 1/1, brachioradialis 1/1, knees 2/2+, ankles 2/2 and plantars are flat bilaterally. Sensory to touch is equal with no neglect on double simultaneous stimulation. Cerebellar function showed no ataxia for [id number] testing. No dysdiadochokinesia. No ataxia for [id number] testing on either side. Tone and bulk of muscles normal. Gait deferred.. On general examination, there is no carotid bruit or murmur, S1-S2 audible. Chest is clear on consultation. Abdomen is soft nontender. No organomegaly, bowel sounds present. Peripheral pulses are present. No peripheral edema. Results - Laboratory Findings CBC and BMP: 12/27/23 08:59 12/27/23 08:59 Abnormal Lab Findings: Abnormal Labs 12/26/23 12/27/23 12/27/23 16:50 08:59 08:59 APTT >200.0 H* Chloride 109 H Carbon Dioxide 19 L Glucose 121 H 152 H Calcium 10.6 H Assessment and Plan Assessment: * Probable TIA manifesting with transient left-sided weakness, speech difficulty, that lasted for about 45 seconds and then resolved. * Right ICA stenosis, critical as per CTA. * Hypertension * Hyperlipidemia * Psoriatic arthritis Plan: * Patient probably had a TIA. All symptoms resolved. Current NIH stroke scale is 0. Patient not a candidate for tPA. * 2-D echo revealed normal left ventricular size and EF is 55%. Septal wall thickness. No obvious regional wall motion abnormalities. Normal left atrial size. Trace MR. * CTA neck showed: Heavy mixed calcified plaque in the proximal right ICA, appears nearly occlusive with minimal remaining string of flow believed to be present. Recommend vascular surgery consultation as soon as possible. Mild mostly calcified plaque in the proximal left ICA without significant stenosis. No evidence of dissection or pseudoaneurysm in the carotid or vertebral arteries in the neck. * CTA of the head showed no intracranial large vessel occlusion, significant stenosis or sizable aneurysm. * Carotid Doppler, revealed less than 50% stenosis bilateral ICA. Antegrade flow in both vertebral arteries. * Vascular surgery input appreciated. Tentative plan for right CEA on 12/31/2023. * Because of discordant findings, consider MRA of the neck. * Fasting a.m. lipid panel * Hemoglobin A1c * Permissive hypertension for next 24-48 hours * Check EEG * Patient was not taking any antiplatelet medication. Patient has been loaded with aspirin 324 mg in the ER yesterday, and now maintained on aspirin 81 mg and Plavix 75 mg daily. Vascular surgery has started on heparin, which probably is not indicated at this time, as his symptoms have resolved and no recurrence of TIA. * Neuro checks every 2 hours. * Telemetry monitoring rule out any arrhythmia * DVT prophylaxis: Patient currently on heparin by IV. * Neurology will continue to follow. Thank you for the consult.
[2023-12-27 19:24] LABS: Chol/HDL Ratio 5.55 Ratio; LDL Cholesterol,Calculated 174.4 mg/dL (0.0-131.0)
[2023-12-27] MEDS: amLODIPine 10 MG TAB PO SCH (20:17)
[2023-12-28 09:30] LABS: Basophils # (A) 0.1 k/uL (0-0.2); Basophils % (A) 1 %; Eosinophils # (A) 0.1 k/uL (0-0.7); Eosinophils % (A) 2 %; HCT 44.5 % (39.0-53.0); HGB 14.8 gm/dL (13.0-17.5); Lymphocytes # (A) 1.9 k/uL (1.0-4.8); Lymphocytes % (A) 31 %; MCH 29.6 pg (25.0-35.0); MCHC 33.3 g/dL (31.0-37.0); MCV 88.9 fL (80.0-100.0); Mean Platelet Volume 7.2; Monocytes # (A) 0.4 k/uL (0-1.0); Monocytes % (A) 7 %; Neutrophils # (A) 3.4 k/uL (1.3-7.7); Neutrophils % (A) 57 %; Platelet Count 269 k/uL (150-450); RBC 5.01 m/uL (4.30-5.90); RDW 13.4 % (11.5-15.5); WBC 5.9 k/uL (3.8-10.6)
--- NOTE | 2023-12-28 11:06 | P.PN ---
Subjective Progress Note Date: 12/28/23 Principal diagnosis: Carotid stenosis Patient seen and examined today as a follow-up. He continues to state he has no focal deficits. Patient was seen by neurology likely TIA. He is scheduled for MRI brain and MRA neck per neurology. Echocardiogram reports EF 55%, trace mitr al regurgitation trace tricuspid regurgitation no pericardial effusion. Denies any shortness of breath, chest pain, abdominal pain, fevers or chills. Again no focal deficits reported. Objective - Vital Signs Vital signs: Vital Signs Temp 98.4 F 12/28/23 04:00 Pulse 58 L 12/28/23 07:43 Resp 16 12/28/23 07:43 BP 144/84 12/28/23 07:43 Pulse Ox 99 12/28/23 07:43 FiO2 Intake & Output 12/27/23 12/28/23 12/28/23 18:59 06:59 18:59 Intake Total 501.076 480 358 Balance 501.076 480 358 Intake: IV 63 Heparin Sod,Pork in 0.45% 63 NaCl 25,000 unit In 0.45 % NaCl 1 250ml.bag @ 18 UNITS/KG/HR 12.655 mls/hr IV .[id number] [facility] Rx#: [id number] Intake, IV Titration 98.076 Amount Heparin Sod,Pork in 0.45% 98.076 NaCl 25,000 unit In 0.45 % NaCl 1 250ml.bag @ 18 UNITS/KG/HR 12.655 mls/hr IV .[id number] [facility] Rx#: [id number] Oral 340 480 358 Other: Voiding Method Toilet Toilet # Voids 2 - Exam General appearance: The patient is alert, oriented, appears in no acute distress. HET: Head is normocephalic and atraumatic. Pupils are equal and reactive. Neck: Supple. Heart: Regular. Lungs: Equal expansion, normal respiratory effort. Abdomen: Soft, nontender, nondistended. Extremities: Normal skin color and turgor. Neurological: No focal deficits. Strength and sensation are grossly intact. - Labs CBC & Chem 7: 12/28/23 09:12 12/27/23 08:59 Labs: Abnormal Lab Results - Last 24 Hours (Table) 12/27/23 12/27/23 12/27/23 Range/Units 08:59 12:30 15:14 APTT 120.3 H* 89.3 H (22.0-30.0) sec Triglycerides 165.00 H (0.00-149.00) mg/dL Cholesterol 253.00 H (0.00-200.00) mg/dL LDL Cholesterol, Calc 174.4 H (0.0-131.0) mg/dL 12/27/23 12/28/23 Range/Units 23:51 09:12 APTT 70.2 H 69.6 H (22.0-30.0) sec Triglycerides (0.00-149.00) mg/dL Cholesterol (0.00-200.00) mg/dL LDL Cholesterol, Calc (0.0-131.0) mg/dL Assessment and Plan Assessment: 1. Severe symptomatic right internal carotid artery stenosis per CT angiogram 2. Discordant findings of carotid stenosis on carotid duplex 3. Left-sided weakness and difficulty with speech, possible TIA 4. Hypertension 5. Psoriatic arthritis Plan: CT angiogram head and neck independently reviewed by Dr. Hodge, Dr. Borrego, and Dr. Weir who agree with the findings of your right ICA stenosis. Patient currently on heparin drip, aspirin, Plavix and statin. Patient is scheduled for right carotid endarterectomy with patch angioplasty on Sunday, December 31, 2023. Patient to be n.p.o. after midnight for Sunday. Heparin drip to be discontinued 4 hours prior to procedure at 0 300 on 12/31/2023. Procedure discussed with patient including risks and benefits. Patient is agreeable to proceed. Continue with further recommendations from neurology Thank you for this consultation, we will continue to follow. The impression and plan of care has been dictated as directed. I performed a history and examination of this patient, discussed the same with the dictator. I agree with the dictator's note ,documented as a scribe. Any additional findings or plans will be noted.
--- NOTE | 2023-12-28 17:28 | P.PN ---
Subjective Progress Note Date: 12/28/23 Hospital course: Patient is a very pleasant 58-year-old male with a past medical history of hypertension, hyperlipidemia, and psoriatic arthritis. He presented to the emergency department on 12/26/2023 with a chief complaint of left upper and lower extremity numbness and cramping along with slurred speech and word finding difficulties. He underwent evaluation in the emergency department. Vital signs upon arrival show blood pressure 174/103, heart rate 91, respiratory rate 20, temp 98.1 F, and SpO2 of 99% on room air. Blood glucose upon arrival was 121. EKG completed showing normal sinus rhythm at 78 bpm with pronounced Q waves in leads II, III, and aVF. CT brain completed negative for acute intracranial abnormality. Labs completed and reviewed. CBC, coagulation profile, and BMP were unremarkable. Calcium was mildly elevated at 10.6. Liver profile unremarkable. Creatinine kinase 136. Troponin negative at less than 0.012. CTA head and neck completed. CTA head was reported negative for acute intracranial large vessel occlusion, significant stenosis, or sizable aneurysm. CTA neck showing heavily mixed calcified plaque in the proximal right ICA appears nearly occlusive with minimal remaining string of flow believed to be present, mild mostly calcified plaque in the proximal left ICA without significant stenosis, and no evidence of dissection or pseudoaneurysm in the carotid vertebral arteries. Patient was admitted under our services with consultation to neurology and vascular surgery. Echocardiogram revealing a preserved EF of 55% with trace mitral and trace tricuspid regurgitation no pericardial effusion and no other valvular or structural abnormalities reported. Patient was started on heparin infusion and is scheduled to undergo carotid endarterectomy on 12/31/2023. Physical exam: Patient seen and fully evaluated at the bedside this morning. He just got out of shower this morning and reports feeling well. He denies any further episodes of left upper or lower extremity numbness or slurred speech. He continues to deny having any headache, lightheadedness, dizziness, chest pain, palpitations, or any other complaints. Patient remains on heparin infusion at this time. Vital signs reviewed and stable. General: Nontoxic, no distress and appears stated age. Derm: Skin warm and dry, normal coloration for ethnicity. Head: Atraumatic, normocephalic and symmetric. Eyes: EOMs intact, no lid lag, and anicteric sclera Mouth: no lip lesions, mucus membranes moist Cardiovascular: regular rate and rhythm with normal S1S2, no murmur, positive posterior tibial pulses bilaterally, and cap refill < 2 seconds. Lungs: Respirations even, regular, and unlabored on room air. Lungs CTA bilaterally, no rhonchi, no rales, no wheezing, and no accessory muscle usage. Abdominal: soft, nontender to palpation, no guarding, no appreciable organomegaly Ext: ROM intact. No gross muscle atrophy, no edema, no contractures Neuro: Speech clear, face symmetrical and CN II-XII grossly intact with no noted focal neuro deficits Psych: Alert and oriented to person, place, time, and situation. Appropriate and pleasant affect. Assessment and Plan of Care: Transient episode of left-sided weakness with dysarthria and expressive aphasia, likely TIA Right ICA occlusion -Consult neurology, reviewed documentation in chart. -Vascular surgery following, planning for right carotid endarterectomy on 12/31/2023. -Continue low intensity heparin infusion with close monitoring of PTT for goal therapeutic rate of 44 to 79 seconds. PTT currently therapeutic at 69.6 seconds. -Continue aspirin 81 mg daily, Plavix 75 mg daily, and atorvastatin 80 mg nightly. -Carotid Dopplers completed pending results -Echocardiogram revealing a preserved EF of 55% with trace mitral and trace tricuspid regurgitation no pericardial effusion and no other valvular or structural abnormalities reported. -Continue neuro checks every 4 hours and as needed -PT/OT consult -Fall precautions to remain in place. Hypercalcemia, resolved -Hypercalcemia resolved after gentle IV fluid hydration with repeat calcium level of 9.6. IV fluids discontinued at this time. Hypertension -Continue daily medication regimen with lisinopril 20 mg daily and amlodipine 10 mg nightly. Hyperlipidemia -Continue atorvastatin 80 mg nightly and obtain a lipid profile. Psoriatic arthritis -Hold Otezla at this time. Presurgical clearance -METS score is greater than 4 as patient is able to perform ADLs independently and walk 1-2 blocks and/or up 1 flight of stairs without chest pain or shortness of breath. -NSQIP surgical risk score was calculated. Patient is at a below average risk for serious complication with a risk of 2.2% and average risk of 5.6%, below average risk for cardiac complication with a risk of 0.2% and average risk of 1.1% and below average risk of at 0.1% with average risk being 0.7%. -Echocardiogram, EKG, vitals and laboratory analysis reviewed along with review of patient's history and physical exam. -Patient is at a below average risk and medically optimized and cleared from medical perspective to proceed with planned Right Carotid Endarterectomy without further need of testing or intervention at this time. Data and imaging reviewed: Morning labs reviewed. CBC unremarkable. PTT therapeutic at 69.6 seconds. Vital signs reviewed. Blood pressure 144/84, heart rate 58, respiratory rate 16, temp 98.4 F, and SpO2 of 99% on room air. CODE STATUS: Full code DVT prophylaxis: Lovenox Anticipated discharge date: Clinical course to determine Anticipated discharge place: Home Patient was seen independently by Nurse Pracitioner. This document was prepared using [employer] dictation software. Please allow for errors in business process consultant, while rare they do occur. Gil Peña NP rendered care for this patient independently, reviewed the findings and plan as documented in the note above. I did not physically speak with or examine the patient on this date. Objective - Vital Signs Vital signs: Vital Signs Temp 98.4 F 12/28/23 04:00 Pulse 58 L 12/28/23 07:43 Resp 16 12/28/23 07:43 BP 144/84 12/28/23 07:43 Pulse Ox 99 12/28/23 07:43 FiO2 Intake & Output 12/27/23 12/28/23 12/28/23 18:59 06:59 18:59 Intake Total 501.076 480 358 Balance 501.076 480 358 Intake: IV 63 Heparin Sod,Pork in 0.45% 63 NaCl 25,000 unit In 0.45 % NaCl 1 250ml.bag @ 18 UNITS/KG/HR 12.655 mls/hr IV .[id number] [facility] Rx#: [id number] Intake, IV Titration 98.076 Amount Heparin Sod,Pork in 0.45% 98.076 NaCl 25,000 unit In 0.45 % NaCl 1 250ml.bag @ 18 UNITS/KG/HR 12.655 mls/hr IV .[id number] [facility] Rx#: [id number] Oral 340 480 358 Other: Voiding Method Toilet Toilet # Voids 2 - Labs CBC & Chem 7: 12/28/23 09:12 12/27/23 08:59 Labs: Abnormal Lab Results - Last 24 Hours (Table) 12/27/23 12/27/23 12/27/23 Range/Units 08:59 08:59 08:59 APTT >200.0 H* (22.0-30.0) sec Chloride 109 H (98-107) mmol/L Carbon Dioxide 19 L (22-30) mmol/L Glucose 152 H (74-99) mg/dL Triglycerides 165.00 H (0.00-149.00) mg/dL Cholesterol 253.00 H (0.00-200.00) mg/dL LDL Cholesterol, Calc 174.4 H (0.0-131.0) mg/dL 12/27/23 12/27/23 12/27/23 Range/Units 12:30 15:14 23:51 APTT 120.3 H* 89.3 H 70.2 H (22.0-30.0) sec Chloride (98-107) mmol/L Carbon Dioxide (22-30) mmol/L Glucose (74-99) mg/dL Triglycerides (0.00-149.00) mg/dL Cholesterol (0.00-200.00) mg/dL LDL Cholesterol, Calc (0.0-131.0) mg/dL
--- NOTE | 2023-12-29 01:07 | MR ---
EXAMINATION TYPE: MR angio neck wo/w con DATE OF EXAM: 12/28/2023 COMPARISON: Carotid ultrasound one day earlier. CTA neck 2 days earlier. HISTORY: Stroke, TIA, Right ICA stenosis-Discordant findings TECHNIQUE: MRI of the neck without and with IV contrast, patient injected with 7 cc of gadolinium. 2 -D and 3-D postprocessing imaging is performed on independent workstation. FINDINGS: Significant stenosis without complete occlusion of proximal right internal carotid artery i s present and correlates with recent CT. No significant stenosis in the left common or internal carot id artery. Patent external carotid arteries bilaterally without significant stenosis identified. Codo minant vertebral arteries patent to the basilar junction are redemonstrated. IMPRESSION: Confirmation of significant stenosis without complete occlusion in the proximal right int ernal carotid artery. Consider direct catheter angiogram to further evaluate and/or treat.
--- NOTE | 2023-12-29 07:00 | P.PN ---
Subjective Progress Note Date: 12/28/23 Patient was seen for a follow-up. Patient offers no complaints. All symptoms have resolved. Objective - Vital Signs Vital signs: Vital Signs Temp 98.4 F 12/28/23 04:00 Pulse 58 L 12/28/23 11:39 Resp 16 12/28/23 11:39 BP 136/87 12/28/23 11:39 Pulse Ox 100 12/28/23 11:39 FiO2 Intake & Output 12/27/23 12/28/23 12/28/23 18:59 06:59 18:59 Intake Total 501.076 480 716 Balance 501.076 480 716 Intake: IV 63 Heparin Sod,Pork in 0.45% 63 NaCl 25,000 unit In 0.45 % NaCl 1 250ml.bag @ 18 UNITS/KG/HR 12.655 mls/hr IV .[id number] [facility] Rx#: [id number] Intake, IV Titration 98.076 Amount Heparin Sod,Pork in 0.45% 98.076 NaCl 25,000 unit In 0.45 % NaCl 1 250ml.bag @ 18 UNITS/KG/HR 12.655 mls/hr IV .[id number] [facility] Rx#: [id number] Oral 340 480 716 Other: Voiding Method Toilet Toilet # Voids 2 1 - Exam Normal. Mentation normal, speech and language functions normal. No pronator drift. Patient walking around well. - Labs CBC & Chem 7: 12/28/23 09:12 12/27/23 08:59 Labs: Abnormal Lab Results - Last 24 Hours (Table) 12/27/23 12/27/23 12/28/23 Range/Units 08:59 23:51 09:12 APTT 70.2 H 69.6 H (22.0-30.0) sec Triglycerides 165.00 H (0.00-149.00) mg/dL Cholesterol 253.00 H (0.00-200.00) mg/dL LDL Cholesterol, Calc 174.4 H (0.0-131.0) mg/dL Assessment and Plan Assessment: * Probable TIA manifesting with transient left-sided weakness, speech difficulty, that lasted for about 45 seconds and then resolved. * Right ICA stenosis, critical as per CTA. * Hypertension * Hyperlipidemia * Psoriatic arthritis Plan: * Patient probably had a TIA. All symptoms resolved. Current NIH stroke scale is 0. Patient not a candidate for tPA. * 2-D echo revealed normal left ventricular size and EF is 55%. Septal wall thickness. No obvious regional wall motion abnormalities. Normal left atrial size. Trace MR. * CTA neck showed: Heavy mixed calcified plaque in the proximal right ICA, appears nearly occlusive with minimal remaining string of flow believed to be present. Recommend vascular surgery consultation as soon as possible. Mild mostly calcified plaque in the proximal left ICA without significant stenosis. No evidence of dissection or pseudoaneurysm in the carotid or vertebral arteries in the neck. * CTA of the head showed no intracranial large vessel occlusion, significant stenosis or sizable aneurysm. * Carotid Doppler, revealed less than 50% stenosis bilateral ICA. Antegrade flow in both vertebral arteries. * Vascular surgery input appreciated. Tentative plan for right CEA on 12/31/2023. * MRA of the neck revealed confirmation of significant stenosis without complete occlusion in the proximal right ICA. Consider direct catheter angiogram. * Fasting a.m. lipid panel with cholesterol 253, LDL 174, HDL 45 and triglycerides 165. Agree with starting high-intensity statins with Lipitor 80 mg daily. * Hemoglobin A1c 5.6 normal * Permissive hypertension for next 24-48 hours * Patient was not taking any antiplatelet medication. Patient has been loaded with aspirin 324 mg in the ER yesterday, and now maintained on aspirin 81 mg and Plavix 75 mg daily. Vascular surgery has started on heparin. * Neuro checks every 4 hours. * Telemetry monitoring rule out any arrhythmia * DVT prophylaxis: Patient currently on heparin by IV.
[2023-12-29 10:09] LABS: HGB 16.3 gm/dL (13.0-17.5); MCH 29.2 pg (25.0-35.0); MCHC 31.3 g/dL (31.0-37.0); MCV 93.5 fL (80.0-100.0); Mean Platelet Volume 7.2; Platelet Count 276 k/uL (150-450); RBC 5.57 m/uL (4.30-5.90); RDW 13.5 % (11.5-15.5); WBC 6.3 k/uL (3.8-10.6)
--- NOTE | 2023-12-29 11:15 | P.PN ---
Subjective Progress Note Date: 12/29/23 Hospital course: Patient is a very pleasant 58-year-old male with a past medical history of hypertension, hyperlipidemia, and psoriatic arthritis. He presented to the emergency department on 12/26/2023 with a chief complaint of left upper and lower extremity numbness and cramping along with slurred speech and word finding difficulties. He underwent evaluation in the emergency department. Vital signs upon arrival show blood pressure 174/103, heart rate 91, respiratory rate 20, temp 98.1 F, and SpO2 of 99% on room air. Blood glucose upon arrival was 121. EKG completed showing normal sinus rhythm at 78 bpm with pronounced Q waves in leads II, III, and aVF. CT brain completed negative for acute intracranial abnormality. Labs completed and reviewed. CBC, coagulation profile, and BMP were unremarkable. Calcium was mildly elevated at 10.6. Liver profile unremarkable. Creatinine kinase 136. Troponin negative at less than 0.012. CTA head and neck completed. CTA head was reported negative for acute intracranial large vessel occlusion, significant stenosis, or sizable aneurysm. CTA neck showing heavily mixed calcified plaque in the proximal right ICA appears nearly occlusive with minimal remaining string of flow believed to be present, mild mostly calcified plaque in the proximal left ICA without significant stenosis, and no evidence of dissection or pseudoaneurysm in the carotid vertebral arteries. Patient was admitted under our services with consultation to neurology and vascular surgery. Echocardiogram revealing a preserved EF of 55% with trace mitral and trace tricuspid regurgitation no pericardial effusion and no other valvular or structural abnormalities reported. Patient was started on heparin infusion and is scheduled to undergo carotid endarterectomy on 12/31/2023. Neck MRA was completed showing confirmation of significant stenosis without complete occlusion in the proximal right internal carotid artery. Physical exam: Patient seen and fully evaluated at the bedside this morning. He was sitting up in the chair and reports feeling well this morning. Patient denies having any pain or complaints. He remains on heparin infusion pending scheduled right carotid endarterectomy on Sunday. Patient denies having any headache, lightheadedness, dizziness, chest pain, palpitations, shortness of breath, or experiencing any numbness/tingling/weakness in his extremities. He had no further episodes of slurred speech or word finding difficulties since arrival to our facility. Vital signs reviewed and stable. General: Nontoxic, no distress and appears stated age. Derm: Skin warm and dry, normal coloration for ethnicity. Head: Atraumatic, normocephalic and symmetric. Eyes: EOMs intact, no lid lag, and anicteric sclera Mouth: no lip lesions, mucus membranes moist Cardiovascular: regular rate and rhythm with normal S1S2, no murmur, positive po sterior tibial pulses bilaterally, and cap refill < 2 seconds. Lungs: Respirations even, regular, and unlabored on room air. Lungs CTA bilaterally, no rhonchi, no rales, no wheezing, and no accessory muscle usage. Abdominal: soft, nontender to palpation, no guarding, no appreciable organomegaly Ext: ROM intact. No gross muscle atrophy, no edema, no contractures Neuro: Speech clear, face symmetrical and CN II-XII grossly intact with no noted focal neuro deficits Psych: Alert and oriented to person, place, time, and situation. Appropriate and pleasant affect. Assessment and Plan of Care: TIA with Transient episode of left-sided weakness with dysarthria and expressive aphasia Right ICA occlusion -Neurology following, reviewed documentation in chart. -Neck MRA was completed showing confirmation of significant stenosis without complete occlusion in the proximal right internal carotid artery. -Vascular surgery following, planning for right carotid endarterectomy on 12/31/2023. -Continue low intensity heparin infusion with close monitoring of PTT for goal therapeutic rate of 44 to 79 seconds. PTT currently therapeutic at 67.7 seconds. -Continue aspirin 81 mg daily, Plavix 75 mg daily, and atorvastatin 80 mg nightly. -Carotid Dopplers completed pending results -Echocardiogram revealing a preserved EF of 55% with trace mitral and trace tricuspid regurgitation no pericardial effusion and no other valvular or structural abnormalities reported. -Continue neuro checks every 4 hours and as needed -PT/OT consult -Fall precautions to remain in place. Hypercalcemia, resolved -Hypercalcemia resolved after gentle IV fluid hydration with repeat calcium level of 9.6. IV fluids discontinued at this time. Hypertension -Continue daily medication regimen with lisinopril 20 mg daily and amlodipine 10 mg nightly. Hyperlipidemia -Continue atorvastatin 80 mg nightly and obtain a lipid profile. Psoriatic arthritis -Hold Otezla at this time. Presurgical clearance -METS score is greater than 4 as patient is able to perform ADLs independently and walk 1-2 blocks and/or up 1 flight of stairs without chest pain or shortness of breath. -NSQIP surgical risk score was calculated. Patient is at a below average risk for serious complication with a risk of 2.2% and average risk of 5.6%, below average risk for cardiac complication with a risk of 0.2% and average risk of 1.1% and below average risk of at 0.1% with average risk being 0.7%. -Echocardiogram, EKG, vitals and laboratory analysis reviewed along with review of patient's history and physical exam. -Patient is at a below average risk and medically optimized and cleared from medical perspective to proceed with planned Right Carotid Endarterectomy without further need of testing or intervention at this time. Data and imaging reviewed: Morning labs reviewed. CBC remained unremarkable. PTT therapeutic at 67.7 seconds. BMP and magnesium pending. Vital signs reviewed. Blood pressure 149/97, heart rate 61, respiratory rate 16, temp 97.9 F, and SpO2 of 99% on room air. CODE STATUS: Full code DVT prophylaxis: Lovenox Anticipated discharge date: Clinical course to determine Anticipated discharge place: Home Patient was seen independently by Nurse Pracitioner. This document was prepared using [employer] dictation software. Please allow for errors in slot service specialist, while rare they do occur. Gil Peña NP rendered care for this patient independently, reviewed the findings and plan as documented in the note above. I did not physically speak with or examine the patient on this date. Objective - Vital Signs Vital signs: Vital Signs Temp 97.4 F L 12/28/23 19:40 Pulse 56 L 12/29/23 03:05 Resp 16 12/29/23 03:05 BP 118/79 12/29/23 03:05 Pulse Ox 99 12/29/23 03:05 FiO2 Intake & Output 12/28/23 12/29/23 12/29/23 18:59 06:59 18:59 Intake Total 1074 1020 Balance 1074 1020 Intake: Oral 1074 1020 Other: Voiding Method Toilet # Voids 1 1 - Labs CBC & Chem 7: 12/30/23 05:59 12/30/23 05:59 Labs: Abnormal Lab Results - Last 24 Hours (Table) 12/28/23 Range/Units 09:12 APTT 69.6 H (22.0-30.0) sec
[2023-12-29 12:06] LABS: African American GFR (CKD) >90 (>60 ml/min/1.73 sqM); Anion Gap 8 mmol/L; Blood Urea Nitrogen 13 mg/dL (9-20); Calcium 9.4 mg/dL (8.4-10.2); Carbon Dioxide 23 mmol/L (22-30); Chloride 108 mmol/L (98-107); Glucose 100 mg/dL (74-99); Magnesium 2.2 mg/dL (1.6-2.3); Non-African American GFR(CKD) >90 (>60 ml/min/1.73 sqM); Potassium 3.9 mmol/L (3.5-5.1); Sodium 139 mmol/L (137-145)
--- NOTE | 2023-12-29 12:11 | P.PN ---
Subjective Progress Note Date: 12/29/23 Patient seen and examined. No complaints. No concerns. Objective - Vital Signs Vital signs: Vital Signs Temp 97.9 F 12/29/23 08:18 Pulse 62 12/29/23 11:37 Resp 16 12/29/23 11:37 BP 162/88 12/29/23 11:37 Pulse Ox 100 12/29/23 11:37 FiO2 Intake & Output 12/28/23 12/29/23 12/29/23 18:59 06:59 18:59 Intake Total 1074 1020 358 Balance 1074 1020 358 Intake: Oral 1074 1020 358 Other: Voiding Method Toilet Toilet # Voids 1 1 - Exam General appearance: The patient is alert, oriented, appears in no acute distress. HET: Head is normocephalic and atraumatic. Pupils are equal and reactive. Neck: Supple. Heart: Regular. Lungs: Equal expansion, normal respiratory effort. Abdomen: Soft, nontender, nondistended. Extremities: Normal skin color and turgor. Neurological: No focal deficits. Strength and sensation are grossly intact. - Labs CBC & Chem 7: 12/29/23 09:20 12/29/23 10:26 Labs: Abnormal Lab Results - Last 24 Hours (Table) 12/29/23 12/29/23 Range/Units 09:20 10:26 APTT 67.7 H (22.0-30.0) sec Chloride 108 H (98-107) mmol/L Glucose 100 H (74-99) mg/dL Assessment and Plan Assessment: 1. Severe symptomatic right internal carotid artery stenosis per CT angiogram, confirmed on MRA neck 2. Discordant findings of carotid stenosis on carotid duplex 3. Left-sided weakness and difficulty with speech, possible TIA 4. Hypertension 5. Psoriatic arthritis Plan: Currently patient with reconfirmed findings on MRI of the neck. Will continue forward with plan for right carotid endarterectomy patch angioplasty December 30. N.p.o. after midnight on Sunday evening. Hold heparin 4 hours prior to procedure. Risks and benefits again discussed. Questions were answered. Patient seemingly understands and willing to proceed.
[2023-12-30 06:24] LABS: HCT 44.4 % (39.0-53.0); HGB 14.7 gm/dL (13.0-17.5); MCH 29.6 pg (25.0-35.0); MCHC 33.2 g/dL (31.0-37.0); MCV 89.2 fL (80.0-100.0); Mean Platelet Volume 7.3; Platelet Count 283 k/uL (150-450); RBC 4.98 m/uL (4.30-5.90); RDW 13.5 % (11.5-15.5); WBC 6.9 k/uL (3.8-10.6)
[2023-12-30 06:56] LABS: African American GFR (CKD) >90 (>60 ml/min/1.73 sqM); Anion Gap 10 mmol/L; Blood Urea Nitrogen 15 mg/dL (9-20); Calcium 9.6 mg/dL (8.4-10.2); Carbon Dioxide 21 mmol/L (22-30); Chloride 108 mmol/L (98-107); Glucose 98 mg/dL (74-99); Non-African American GFR(CKD) 90 (>60 ml/min/1.73 sqM); Potassium 4.1 mmol/L (3.5-5.1); Sodium 139 mmol/L (137-145)
--- NOTE | 2023-12-30 13:52 | P.PN ---
Subjective Progress Note Date: 12/30/23 Hospital course: Patient is a very pleasant 58-year-old male with a past medical history of hypertension, hyperlipidemia, and psoriatic arthritis. He presented to the emergency department on 12/26/2023 with a chief complaint of left upper and lower extremity numbness and cramping along with slurred speech and word finding difficulties. He underwent evaluation in the emergency department. Vital signs upon arrival show blood pressure 174/103, heart rate 91, respiratory rate 20, temp 98.1 F, and SpO2 of 99% on room air. Blood glucose upon arrival was 121. EKG completed showing normal sinus rhythm at 78 bpm with pronounced Q waves in leads II, III, and aVF. CT brain completed negative for acute intracranial abnormality. Labs completed and reviewed. CBC, coagulation profile, and BMP were unremarkable. Calcium was mildly elevated at 10.6. Liver profile unremarkable. Creatinine kinase 136. Troponin negative at less than 0.012. CTA head and neck completed. CTA head was reported negative for acute intracranial large vessel occlusion, significant stenosis, or sizable aneurysm. CTA neck showing heavily mixed calcified plaque in the proximal right ICA appears nearly occlusive with minimal remaining string of flow believed to be present, mild mostly calcified plaque in the proximal left ICA without significant stenosis, and no evidence of dissection or pseudoaneurysm in the carotid vertebral arteries. Patient was admitted under our services with consultation to neurology and vascular surgery. Echocardiogram revealing a preserved EF of 55% with trace mitral and trace tricuspid regurgitation no pericardial effusion and no other valvular or structural abnormalities reported. Patient was started on heparin infusion and is scheduled to undergo carotid endarterectomy on 12/31/2023. Neck MRA was completed showing confirmation of significant stenosis without complete occlusion in the proximal right internal carotid artery. Physical exam: Patient seen and fully evaluated at the bedside this morning. Patient resting comfortably and appears to be doing well, he reports he is looking forward to having procedure over with tomorrow. He continues to deny having any headache, lightheadedness, dizziness, chest pain, palpitations, shortness of breath, or experiencing any numbness/tingling/weakness in his extremities. He remains free from any further episodes of slurred speech or word finding difficulties since arrival to our facility. Vital signs reviewed and stable. General: Nontoxic, no distress and appears stated age. Derm: Skin warm and dry, normal coloration for ethnicity. Head: Atraumatic, normocephalic and symmetric. Eyes: EOMs intact, no lid lag, and anicteric sclera Mouth: no lip lesions, mucus membranes moist Cardiovascular: regular rate and rhythm with normal S1S2, no murmur, positive posterior tibial pulses bilaterally, and cap refill < 2 seconds. Lungs: Respirations even, regular, and unlabored on room air. Lungs CTA bilaterally, no rhonchi, no rales, no wheezing, and no accessory muscle usage. Abdominal: soft, nontender to palpation, no guarding, no appreciable organomegaly Ext: ROM intact. No gross muscle atrophy, no edema, no contractures Neuro: Speech clear, face symmetrical and CN II-XII grossly intact with no noted focal neuro deficits Psych: Alert and oriented to person, place, time, and situation. Appropriate and pleasant affect. Assessment and Plan of Care: TIA with Transient episode of left-sided weakness with dysarthria and expressive aphasia Right ICA occlusion -Neurology following, reviewed documentation in chart. -Neck MRA was completed showing confirmation of significant stenosis without complete occlusion in the proximal right internal carotid artery. -Vascular surgery following, planning for right carotid endarterectomy on 12/31/2023. -Continue low intensity heparin infusion with close monitoring of PTT for goal therapeutic rate of 44 to 79 seconds. PTT remains therapeutic at 75.7 seconds. -Continue aspirin 81 mg daily, Plavix 75 mg daily, and atorvastatin 80 mg nightly. -Echocardiogram revealing a preserved EF of 55% with trace mitral and trace tricuspid regurgitation no pericardial effusion and no other valvular or structural abnormalities reported. -Continue neuro checks every 4 hours and as needed -PT/OT consult -Fall precautions to remain in place. Hypercalcemia, resolved -Hypercalcemia resolved after gentle IV fluid hydration with repeat calcium l evel of 9.6. IV fluids discontinued at this time. Hypertension -Continue daily medication regimen with lisinopril 20 mg daily and amlodipine 10 mg nightly. Hyperlipidemia -Continue atorvastatin 80 mg nightly and obtain a lipid profile. Psoriatic arthritis -Hold Otezla at this time. Presurgical clearance -METS score is greater than 4 as patient is able to perform ADLs independently and walk 1-2 blocks and/or up 1 flight of stairs without chest pain or shortness of breath. -NSQIP surgical risk score was calculated. Patient is at a below average risk for serious complication with a risk of 2.2% and average risk of 5.6%, below average risk for cardiac complication with a risk of 0.2% and average risk of 1.1% and below average risk of at 0.1% with average risk being 0.7%. -Echocardiogram, EKG, vitals and laboratory analysis reviewed along with review of patient's history and physical exam. -Patient is at a below average risk and medically optimized and cleared from medical perspective to proceed with planned Right Carotid Endarterectomy without further need of testing or intervention at this time. Data and imaging reviewed: Morning labs reviewed. CBC remained unremarkable. PTT therapeutic at 75.7 seconds. BMP unremarkable with the exception of mild hyperchloremia with chloride of 108 and hypocarbia with bicarb of 21. Vital signs reviewed. Blood pressure 128/84, heart rate 56, respiratory rate 16, temp 97.6 F, and SpO2 of 99% on room air. CODE STATUS: Full code DVT prophylaxis: Lovenox Anticipated discharge date: Clinical course to determine Anticipated discharge place: Home Patient was seen independently by Nurse Pracitioner. This document was prepared using [employer] dictation software. Please allow for errors in certified rehabilitation counselor, while rare they do occur. Gil Peña NP rendered care for this patient independently, reviewed the findings and plan as documented in the note above. I did not physically speak with or examine the patient on this date. Objective - Vital Signs Vital signs: Vital Signs Temp 97.6 F 12/29/23 20:00 Pulse 56 L 12/30/23 04:00 Resp 16 12/30/23 04:00 BP 116/73 12/30/23 04:00 Pulse Ox 98 12/30/23 04:00 FiO2 Intake & Output 12/29/23 12/30/23 12/30/23 18:59 06:59 18:59 Intake Total 476 228.167 Balance 476 228.167 Intake: Intake, IV Titration 228.167 Amount Heparin Sod,Pork in 0.45% 228.167 NaCl 25,000 unit In 0.45 % NaCl 1 250ml.bag @ 18 UNITS/KG/HR 12.655 mls/hr IV .[id number] [facility] Rx#: [id number] Oral 476 Other: Voiding Method Toilet Toilet # Voids 2 1 - Labs CBC & Chem 7: 12/30/23 05:59 12/30/23 05:59 Labs: Abnormal Lab Results - Last 24 Hours (Table) 12/29/23 12/29/23 12/30/23 Range/Units 09:20 10:26 05:59 APTT 67.7 H (22.0-30.0) sec Chloride 108 H 108 H (98-107) mmol/L Carbon Dioxide 21 L (22-30) mmol/L Glucose 100 H (74-99) mg/dL 12/30/23 Range/Units 05:59 APTT 75.7 H (22.0-30.0) sec Chloride (98-107) mmol/L Carbon Dioxide (22-30) mmol/L Glucose (74-99) mg/dL
--- NOTE | 2023-12-30 15:01 | P.PN ---
Subjective Progress Note Date: 12/30/23 Patient was seen for a follow-up. Patient offers no complaints. All symptoms have resolved. Objective - Vital Signs Vital signs: Vital Signs Temp 97.6 F 12/30/23 08:09 Pulse 56 L 12/30/23 13:09 Resp 16 12/30/23 11:21 BP 118/78 12/30/23 11:21 Pulse Ox 100 12/30/23 11:21 FiO2 Intake & Output 12/29/23 12/30/23 12/30/23 18:59 06:59 18:59 Intake Total 476 228.167 Balance 476 228.167 Intake: Intake, IV Titration 228.167 Amount Heparin Sod,Pork in 0.45% 228.167 NaCl 25,000 unit In 0.45 % NaCl 1 250ml.bag @ 18 UNITS/KG/HR 12.655 mls/hr IV .[id number] [facility] Rx#: [id number] Oral 476 Other: Voiding Method Toilet Toilet Toilet # Voids 2 1 3 # Bowel Movements 3 - Exam Normal. Mentation normal, speech and language functions normal. No pronator drift. Patient walking around well. - Labs CBC & Chem 7: 12/30/23 05:59 12/30/23 05:59 Labs: Abnormal Lab Results - Last 24 Hours (Table) 12/30/23 12/30/23 Range/Units 05:59 05:59 APTT 75.7 H (22.0-30.0) sec Chloride 108 H (98-107) mmol/L Carbon Dioxide 21 L (22-30) mmol/L Assessment and Plan Assessment: * Probable TIA manifesting with transient left-sided weakness, speech difficulty, that lasted for about 45 seconds and then resolved. * Right ICA stenosis, critical as per CTA and MRA. * Hypertension * Hyperlipidemia * Psoriatic arthritis Plan: * Patient probably had a TIA. All symptoms resolved. Current NIH stroke scale is 0. Patient not a candidate for tPA. * 2-D echo revealed normal left ventricular size and EF is 55%. Septal wall thickness. No obvious regional wall motion abnormalities. Normal left atrial size. Trace MR. * CTA neck showed: Heavy mixed calcified plaque in the proximal right ICA, appears nearly occlusive with minimal remaining string of flow believed to be present. Recommend vascular surgery consultation as soon as possible. Mild mostly calcified plaque in the proximal left ICA without significant stenosis. No evidence of dissection or pseudoaneurysm in the carotid or vertebral arteries in the neck. * CTA of the head showed no intracranial large vessel occlusion, significant stenosis or sizable aneurysm. * Carotid Doppler, revealed less than 50% stenosis bilateral ICA. Antegrade flow in both vertebral arteries. * Vascular surgery input appreciated. Tentative plan for right CEA on 12/31/2023. * MRA of the neck revealed confirmation of significant stenosis without complete occlusion in the proximal right ICA. Consider direct catheter angiogram. * Patient undergoing right carotid endarterectomy in the morning. * Fasting a.m. lipid panel with cholesterol 253, LDL 174, HDL 45 and tr iglycerides 165. Agree with starting high-intensity statins with Lipitor 80 mg daily. * Hemoglobin A1c 5.6 normal * Permissive hypertension for next 24-48 hours * Patient was not taking any antiplatelet medication. Patient has been loaded with aspirin 324 mg in the ER yesterday, and now maintained on aspirin 81 mg and Plavix 75 mg daily. Vascular surgery has started on heparin. * Neuro checks every 4 hours. * Telemetry monitoring rule out any arrhythmia * DVT prophylaxis: Patient currently on heparin by IV. * Dr. Ronaldo Lewis to resume neurology service in the morning.
[2023-12-31] MEDS: LACTATED RINGERS 1,000 ML IV ONE (06:15)
[2023-12-31 06:46] LABS: Glucose,Whole Blood 94 mg/dL (70-110)
[2023-12-31] MEDS: MIDAZOLAM 2 MG/2 ML VIAL IVP ONE (06:50)
--- NOTE | 2023-12-31 07:16 | P.ANPRN ---
Procedure Note - Anesthesia - Invasive Line Left Arterial Line Time Out Performed: Yes Date of Procedure: 12/31/23 Time of Procedure: 06:50 Location of Patient: PreOp Preparation: Sterile Prep Arterial Line Location: Radial Ultrasound Used: Yes Purpose - Visualization and Identification of Vasculature: Yes Image Stored and Saved: Yes Narrative: Invasive line placement per sterile protocol utilized.
[2023-12-31] MEDS ORDERED: PROTAMINE SULFATE 10 MG/ML 5 ML VIAL ONE (07:25)
[2023-12-31] MEDS ORDERED: HEPARIN SODIUM,PORCINE 10,000 UNIT/ML 1 ML VIAL ONE (07:25)
[2023-12-31] MEDS ORDERED: ONDANSETRON 4 MG/2 ML VIAL ONE (07:25)
[2023-12-31] MEDS ORDERED: SUCCINYLCHOLINE CHLORIDE 200 MG/10 ML VIAL IV ONE (07:25)
[2023-12-31] MEDS ORDERED: NEOSTIGMINE 1 MG/ML 10 ML VIAL ONE (07:25)
[2023-12-31] MEDS ORDERED: HYDROmorphone (PF) 1 MG/ML ONE (07:25)
[2023-12-31] MEDS ORDERED: ePHEDrine 50 MG/ML 1 ML VIAL ONE (07:25)
[2023-12-31] MEDS ORDERED: fentaNYL (PF) 50 MCG/ML 2 ML AMP ONE (07:25)
[2023-12-31] MEDS ORDERED: DEXAMETHASONE SOD PHOSPHATE 10 MG/ML 1 ML VIAL ONE (07:25)
[2023-12-31] MEDS ORDERED: GLYCOPYRROLATE 0.2 MG/ML 2 ML VIAL ONE (07:25)
[2023-12-31] MEDS ORDERED: ROCURONIUM 10 MG/ML (5 ML VIAL) IV ONE (07:25)
[2023-12-31] MEDS ORDERED: PHENYLEPHRINE-0.9% NACL SYG 1,000 MCG/10 ML SYRINGE ONE (07:25)
[2023-12-31] MEDS ORDERED: PROPOFOL 10 MG/ML 20 ML VIAL IV ONE (07:25)
[2023-12-31] MEDS: THROMBIN (BOVINE) 5,000 UNIT VIAL TOPICAL ONE (07:28)
[2023-12-31] MEDS: HEPARIN SODIUM (1,000 UNIT/ML) 2,000 UNIT in SODIUM CHLORIDE 0.9% 1,000 ML IRRIGATION ONE (07:28)
[2023-12-31] MEDS: LIDOCAINE 1% INJ 10MG/ML (20 ML MDV) SQ ONE (07:28)
[2023-12-31] MEDS: ceFAZolin 2 GM in SODIUM CHLORIDE 0.9% 500 ML 500 ML IRRIGATION ONE (07:28)
[2023-12-31] MEDS: ceFAZolin 1,000 MG VIAL IVPB ONE (07:28)
--- NOTE | 2023-12-31 09:12 | P.OP ---
Date of Procedure: 12/31/23 Preoperative Diagnosis: Hemodynamically severe and symptomatic right ICA stenosis. Postoperative Diagnosis: Same. Procedure(s) Performed: Right carotid endarterectomy with patch angioplasty. Anesthesia: ASIAA Surgeon: James Weir Estimated Blood Loss (ml): 25 Urine output (ml): 0 Pathology: other (Right carotid plaque) Condition: stable Disposition: ICU Indications for Procedure: Patient is a 58-year-old male who presented with transient ischemic attack affecting the left arm and leg as well as his speech. The symptoms have resolved. Workup demonstrated hemodynamically severe right ICA stenosis. Because of his symptoms and degree of stenosis the patient was offered carotid endarterectomy. He is felt to be a poor candidate for carotid stenting owing to his relatively young age. The procedure, risk and benefits were discussed. All questions were answered patient's satisfaction. Consent form was signed. Description of Procedure: Patient was brought the op room placed in the supine position administered ge neral endotracheal anesthesia administered by the department of anesthesiology. Patient received 2 g of intravenously administered Ancef in the perioperative phase. The right lateral neck, supraclavicular and anterior chest wall areas were sterilely prepped and draped in usual manner. Skin incision was made along the anterior border the sternocleidomastoid muscle and carried down through the subcutaneous tissues. Hemostasis was achieved using electrocautery. The platysma muscle was divided and the superior border the sternocleidomastoid muscle was identified and the dissection was carried along this line with the muscle being mobilized and moved posteriorly/laterally. The facial vein was identified. This was mobilized, ligated with silk suture and divided. Large number of arterial branches arising from the superior thyroid artery were encountered and these were draped anteriorly across the carotid and coursed laterally. Multiple branches were ligated and divided however in spite of this the artery was yet in the way of the the endarterectomized site. The superior thyroid artery was then doubly ligated and divided. This allowed for good exposure of the common, external and internal carotid segments. The proximal portion of the common carotid artery was identified and dissected free of investing tissues and encircled with Vesseloops. The vagus nerve was identified and left undisturbed. Dissection was then carried cephalad to the bulb. The origin of the external carotid artery was dissected free of investing tissues and encircled with vessel loop. The hypoglossal nerve was identified. Dissection was then carried along the common carotid to a point distal to the plaque burden where the artery was dissected and a vessel loop was placed. Patient was systemically heparinized. ACT was drawn and appropriate anticoagulation had been achieved. Vesseloops surrounding first the internal and the common and external carotid arteries were drawn closed. Longitudinal arteriotomy was made in the common extended distally through the bulb and into the internal segment to a point past the level of plaque. Stump pressure was obtained and was found to be 65 mmHg mean and thus no shunt was thought to be necessary. Endarterectomy was then begun at the level of the common carotid continued distally to the level of the bulb. Retraction endarterectomy was performed on the external segment and then endarterectomy was continued into the internal and the distal end feathered off quite well without the need for tacking suture. The plaque was sent to pathology. The remaining luminal surface was inspected for any loose or free-floating material and this was removed where identified. Patch arteriotomy closure was performed with a bovine pericardial patch and 6-0 Prolene suture placed in a running fashion. Just prior to completion of the anastomotic line the internal, external and common segments were backbled and no thrombus was retrieved. The anastomotic line was then completed. Subsequently the external carotid artery Vesseloops was loosened. The internal carotid artery was occluded at its origin and is Vesseloops loosened. The Vesseloops surrounding the common carotid artery was loosened and thus flushing any potential debris into the external system. Finally flow was restored into the internal segment. Excellent pulse in the ICA distal to the endarterectomized segment was identified. Anastomotic line was hemostatic. Patient received 25 mg of protamine to reverse the heparin effect. Topical thrombin and Gelfoam were placed about the anastomotic line to help assure hemostasis. The topical thrombin and Gelfoam were removed. The wound was irrigated with antibiotic-containing solution. Hemostasis was judged to be adequate. Deep tissues were closed with 3-0 Vicryl and dermis was closed with 4 Monocryl placed in a running intradermal fashion. Skin glue appropriate dressings were applied. Patient tolerated the procedure well, awoke without apparent neurologic complication was transferred to the recovery area in satisfactory and stable condition.
[2023-12-31] MEDS ORDERED: HYDROcodone/APAP 5-325MG 1 EACH TAB PO PRN (09:49)
[2023-12-31] MEDS ORDERED: MAG HYDROX/AL HYDROX/SIMETH 30 ML CUP PO PRN (09:49)
[2023-12-31] MEDS ORDERED: BENZOCAINE/MENTHOL LOZENG 1 EACH LOZENGE MUCOUS MEM PRN (09:49)
[2023-12-31] MEDS ORDERED: MORPHINE SULFATE 2 MG/ML SYRINGE IVP PRN (09:49)
[2023-12-31] MEDS ORDERED: TRIMETHOBENZAMIDE 100 MG/ML 2 ML VIAL IM PRN (09:49)
[2023-12-31] MEDS ORDERED: ACETAMINOPHEN TAB 325 MG TAB PO PRN (09:49)
--- NOTE | 2023-12-31 13:05 | P.PN ---
Subjective Progress Note Date: 12/31/23 Hospital course: Patient is a very pleasant 58-year-old male with a past medical history of hypertension, hyperlipidemia, and psoriatic arthritis. He presented to the emergency department on 12/26/2023 with a chief complaint of left upper and lower extremity numbness and cramping along with slurred speech and word finding difficulties. He underwent evaluation in the emergency department. Vital signs upon arrival show blood pressure 174/103, heart rate 91, respiratory rate 20, temp 98.1 F, and SpO2 of 99% on room air. Blood glucose upon arrival was 121. EKG completed showing normal sinus rhythm at 78 bpm with pronounced Q waves in leads II, III, and aVF. CT brain completed negative for acute intracranial abnormality. Labs completed and reviewed. CBC, coagulation profile, and BMP were unremarkable. Calcium was mildly elevated at 10.6. Liver profile unremarkable. Creatinine kinase 136. Troponin negative at less than 0.012. CTA head and neck completed. CTA head was reported negative for acute intracranial large vessel occlusion, significant stenosis, or sizable aneurysm. CTA neck showing heavily mixed calcified plaque in the proximal right ICA appears nearly occlusive with minimal remaining string of flow believed to be present, mild mostly calcified plaque in the proximal left ICA without significant stenosis, and no evidence of dissection or pseudoaneurysm in the carotid vertebral arteries. Patient was admitted under our services with consultation to neurology and vascular surgery. Echocardiogram revealing a preserved EF of 55% with trace mitral and trace tricuspid regurgitation no pericardial effusion and no other valvular or structural abnormalities reported. Patient was started on heparin infusion and is scheduled to undergo carotid endarterectomy on 12/31/2023. Neck MRA was completed showing confirmation of significant stenosis without complete occlusion in the proximal right internal carotid artery. Physical exam: Patient seen and fully evaluated at the bedside after completion of right carotid endarterectomy. Patient resting comfortably and appears to be d Dressing in place right lateral neck and is clean, dry, and intact with no signs of bleeding. Patient reports feeling good and reporting only mild pain to neck and slight sore throat. He was hypotensive 90/55 upon assessment. Vascular surgery team notified. 1 L bolus infusing at this time. Patient free from any headache, lightheadedness, dizziness, chest pain, palpitations, shortness of breath, or experiencing any numbness/tingling/weakness/swelling in his extremities. Vital signs reviewed and stable. General: Nontoxic, no distress and appears stated age. Derm: Skin warm and dry, normal coloration for ethnicity. Head: Atraumatic, normocephalic and symmetric. Eyes: EOMs intact, no lid lag, and anicteric sclera Mouth: no lip lesions, mucus membranes moist Cardiovascular: regular rate and rhythm with normal S1S2, no murmur, positive posterior tibial pulses bilaterally, and cap refill < 2 seconds. Lungs: Respirations even, regular, and unlabored on room air. Lungs CTA bilaterally, no rhonchi, no rales, no wheezing, and no accessory muscle usage. Abdominal: soft, nontender to palpation, no guarding, no appreciable organomegaly Ext: ROM intact. No gross muscle atrophy, no edema, no contractures Neuro: Speech clear, face symmetrical and CN II-XII grossly intact with no noted focal neuro deficits Psych: Alert and oriented to person, place, time, and situation. Appropriate and pleasant affect. Assessment and Plan of Care: TIA with Transient episode of left-sided weakness with dysarthria and expressive aphasia Right ICA occlusion status post carotid endarterectomy Postoperative hypotension -Postoperative hypotension currently blood pressure 90/55. 1 L bolus infusing. Vascular surgery team was notified. Discussed plan of care with vascular surgery SILVER SPRAY WORKER, per vascular surgeon if no improvement in systolic pressure after completion of bolus, will plan for transfer to ICU. -Neurology following, reviewed documentation in chart. -Neck MRA was completed showing confirmation of significant stenosis without complete occlusion in the proximal right internal carotid artery. -Vascular surgery following, took patient for right carotid endarterectomy this morning. -Continue aspirin 81 mg daily, Plavix 75 mg daily, and atorvastatin 80 mg nightly. -Echocardiogram revealing a preserved EF of 55% with trace mitral and trace tricuspid regurgitation no pericardial effusion and no other valvular or structural abnormalities reported. -Continue neuro checks every 4 hours and as needed -PT/OT consult -Fall precautions to remain in place. Hypercalcemia, resolved -Hypercalcemia resolved after gentle IV fluid hydration with repeat calcium level of 9.6. IV fluids discontinued at this time. Hypertension -Continue daily medication regimen with lisinopril 20 mg daily and amlodipine 10 mg nightly. Hyperlipidemia -Continue atorvastatin 80 mg nightly and obtain a lipid profile. Psoriatic arthritis -Hold Otezla at this time. Data and imaging reviewed: Vital signs personally completed and reviewed. Blood pressure 90/55, heart rate 50, respiratory rate 16, and SpO2 was 100% on room air. CODE STATUS: Full code DVT prophylaxis: Lovenox Anticipated discharge date: Clinical course to determine Anticipated discharge place: Home Patient was seen independently by Nurse Pracitioner. This document was prepared using [employer] dictation software. Please allow for errors in child psychologist, while rare they do occur. Patient seen and examined independently. Patient was also seen by Gil Peña SILVER SPRAY WORKER and case was discussed. I am in agreement with subjective, physical exam, assessment and plan as written above and amended below. General: Non toxic, no distress, appears at stated age Derm: Warm, dry Cardiovascular: S1S2 reg, no murmur, positive posterior tibial pulse bilateral, Lungs: CTA bilateral, no rhonchi, no rales, no accessory muscle use Neuro: CN II-XI grossly intact, no focal neuro deficits Psych: Alert, oriented, appropriate affect Patient seen after being transferred from the ICU due to hypotension status post carotid endarterectomy. He is currently on norepinephrine at 0.09 mcg/kg/min. He is doing well. He denies any lightheadedness, dizziness, shortness of breath, or chest discomfort. Family present at bedside. All questions answered. Objective - Vital Signs Vital signs: Vital Signs Temp 98.4 F 12/31/23 06:54 Pulse 78 12/31/23 07:12 Resp 16 12/31/23 07:12 BP 131/88 12/31/23 07:12 Pulse Ox 97 12/31/23 07:12 FiO2 Intake & Output 12/30/23 12/31/23 12/31/23 18:59 06:59 18:59 Intake Total 330.794 640 Balance 330.794 640 Intake: IV 400 Intake, IV Titration 212.794 Amount Heparin Sod,Pork in 0.45% 212.794 NaCl 25,000 unit In 0.45 % NaCl 1 250ml.bag @ 18 UNITS/KG/HR 12.655 mls/hr IV .[id number] [facility] Rx#: [id number] Oral 118 240 Other: Voiding Method Toilet Toilet # Voids 3 1 # Bowel Movements 3 - Labs CBC & Chem 7: 12/31/23 13:13 12/30/23 05:59
[2023-12-31 13:24] LABS: HCT 38.9 % (39.0-53.0); HGB 12.9 gm/dL (13.0-17.5); MCHC 33.2 g/dL (31.0-37.0); MCV 90.3 fL (80.0-100.0); Mean Platelet Volume 7.3; Platelet Count 222 k/uL (150-450); RBC 4.31 m/uL (4.30-5.90); RDW 13.3 % (11.5-15.5); WBC 8.1 k/uL (3.8-10.6)
[2023-12-31] MEDS: LACTATED RINGERS 1,000 ML IV SCH (13:32)
--- NOTE | 2023-12-31 14:24 | P.PN ---
Progress Note - Text Progress Note Date: 12/31/23 Patient is status post right carotid endarterectomy earlier this morning. Patient was transferred from recovery to 3 S. cardiac stepdown unit. Patient was found to be hypotensive, he was given a 500 cc fluid bolus. No improvement in blood pressures. He is asymptomatic. He has no focal deficits. He is alert and oriented x 3. However due to hypotension recommending transfer to ICU for closer management and pressor support as needed. The impression and plan of care has been dictated as directed. I performed a history and examination of this patient, discussed the same with the dictator. I agree with the dictator's note ,documented as a scribe. Any additional findings or plans will be noted.
[2023-12-31] MEDS: NOREPINEPHRINE 4 MG in SODIUM CHLORIDE 0.9% 250 ML IV SCH (14:46)
--- NOTE | 2023-12-31 19:41 | P.CNPUL ---
History of Present Illness Consult date: 12/31/23 Chief complaint: hypotension History of present illness: This is a 58-year-old male patient who presented with a TIA affecting the left arm and leg as well as the speech. The patient's symptoms resolved. Workup demonstrated a severe right ICA stenosis. For that reason, the patient was taken to the operating room and the patient underwent a right carotid endarterectomy with patch angioplasty. Postop, the patient was transferred to the medical floor and the patient was found to be hypotensive and for that reason, ICU monitoring was recommended. Based on that, the patient was transferred to the intensive care unit. Current BP is stable. The patient is currently on lactated Ringer at the rate of 75 cc an hour. The patient is also on low-dose norepinephrine 0.09 mcg/kg/min. He does have some sinus bradycardia. Adequate urine output. Surgical wound site is dry clean and intact. Neurologically intact at this point in time. His past medical history is positive for hypertension hyperlipidemia and psoriatic arthritis. The pat ient echocardiogram showed a preserved LV function with an ejection fraction of 55% and trace MR, trace TR. Review of Systems Constitutional: Denies chills, Denies fever Eyes: denies blurred vision, denies diplopia, denies pain, denies loss of peripheral vision Ears: deny: decreased hearing, ear discharge Ears, nose, mouth and throat: Denies headache, Denies sore throat, Denies vertigo Cardiovascular: Reports lightheadedness (with spell, gone now), Denies chest pain, Denies shortness of breath Respiratory: Denies cough, Denies excessive sputum Gastrointestinal: Denies abdominal pain, Denies diarrhea, Denies nausea, Denies vomiting Genitourinary: Denies incontinence, Denies urinary frequency Musculoskeletal: Denies low back pain, Denies neck pain Integumentary: Denies pruritus, Denies rash Neurological: Reports as per HPI Psychiatric: Denies anxiety, Denies depression Hematologic/Lymphatic: Denies easy bleeding, Denies easy bruising Past Medical History Past Medical History: Hyperlipidemia, Hypertension, Osteoarthritis (OA) Additional Past Medical History / Comment(s): Psoriasis History of Any Multi-Drug Resistant Organisms: None Reported Past Surgical History: Orthopedic Surgery Additional Past Surgical History / Comment(s): arthroscopy knee Past Anesthesia/Blood Transfusion Reactions: No Reported Reaction Past Alcohol Use History: Occasional Past Drug Use History: None Reported - Past Family History Mother Family Medical History: Cancer Medications and Allergies Home Medications Medication Instructions Recorded Confirmed Type Atorvastatin [Lipitor] 20 mg PO HS 02/24/15 12/26/23 History Apremilast [Otezla] 30 mg PO BID 12/26/23 12/26/23 History Mv-Min/Folic/K1/Lycopen/Lutein 1 tab PO DAILY 12/26/23 12/26/23 History [Centrum Silver Men Tablet] Zinc Gluconate [Zinc] 50 mg PO DAILY 12/26/23 12/26/23 History amLODIPine 10 mg PO HS 12/26/23 12/26/23 History lisinopriL [Zestril] 20 mg PO DIRECTED 12/26/23 12/26/23 History Allergies Allergy/AdvReac Type Severity Reaction Status Date / Time No Known Allergies Allergy Verified 12/26/23 18:42 Physical Exam Vitals: Vital Signs Temp Pulse Pulse Pulse Resp BP BP 12/31/23 19:00 50 L 11 L 110/68 12/31/23 18:00 51 L 11 L 113/64 12/31/23 17:00 53 L 8 L 125/100 12/31/23 16:01 98.2 F 53 L 11 L 144/81 12/31/23 16:00 50 L 12/31/23 13:38 49 L 14 85/52 12/31/23 13:25 49 L 88/56 12/31/23 12:49 50 L 88/55 12/31/23 12:30 49 L 90/52 12/31/23 12:10 49 L 81/50 12/31/23 11:49 49 L 14 12/31/23 11:40 50 L 85/50 12/31/23 10:49 88 14 12/31/23 10:15 52 L 16 12/31/23 10:00 51 L 16 12/31/23 09:45 54 L 16 125/50 12/31/23 09:31 57 L 16 125/53 12/31/23 09:15 96.9 F L 74 16 136/58 12/31/23 07:12 78 16 12/31/23 06:54 98.4 F 84 17 149/94 12/31/23 04:00 97.8 F 59 L 18 12/30/23 23:21 59 L 18 04/07/24 20:02 98.0 F 58 L 16 BP Pulse Ox 12/31/23 19:00 99 12/31/23 18:00 98 12/31/23 17:00 12/31/23 16:01 97 12/31/23 16:00 12/31/23 13:38 100 12/31/23 13:25 12/31/23 12:49 12/31/23 12:30 12/31/23 12:10 12/31/23 11:49 81/42 96 12/31/23 11:40 12/31/23 10:49 96/52 96 12/31/23 10:15 104/60 96 12/31/23 10:00 102/62 100 12/31/23 09:45 113/68 100 12/31/23 09:31 128/75 100 12/31/23 09:15 100 12/31/23 07:12 131/88 97 12/31/23 06:54 98 12/31/23 04:00 115/81 98 12/30/23 23:21 133/94 99 12/30/23 20:02 129/84 98 Intake and Output 12/31/23 12/31/23 12/31/23 06:59 14:59 22:59 Intake Total 400 1018.563 956.028 Output Total 25 400 Balance 400 993.563 556.028 Intake: IV 400 1017 150 Lactated Ringers 1,000 ml 150 @ 75 mls/hr IV .[id number] [facility] Rx#:[id number] Intake, IV Titration 1.563 326.028 Amount Lactated Ringers 1,000 ml 300 @ 75 mls/hr IV .[id number] [facility] Rx#:[id number] Norepinephrine 4 mg In 1.563 26.028 Sodium Chloride 0.9% 250 ml @ 0.03 MCG/KG/MIN 8. 036 mls/hr IV .Q24H [facility] Rx#:[id number] Oral 480 Output: Urine 400 Estimated Blood Loss 25 Other: Voiding Method Toilet Toilet Weight 70.307 kg General: Nontoxic, no distress and appears stated age. Head exam was generally normal. There was no scleral icterus or corneal arcus. Mucous membranes were moist. Neck was supple and without jugular venous distension, thyromegaly, or carotid bruits. Carotids were easily palpable bilaterally. There was no adenopathy. Right carotid surgical wound site is dry clean and intact and there is no evidence of any bleed Derm: Skin warm and dry, normal coloration for ethnicity. Head: Atraumatic, normocephalic and symmetric. Eyes: EOMs intact, no lid lag, and anicteric sclera Mouth: no lip lesions, mucus membranes moist Cardiovascular: regular rate and rhythm with normal S1S2, no murmur, positive posterior tibial pulses bilaterally, and cap refill < 2 seconds. Lungs: Respirations even, regular, and unlabored on room air. Lungs CTA bilaterally, no rhonchi, no rales, no wheezing, and no accessory muscle usage. Abdominal: soft, nontender to palpation, no guarding, no appreciable organomegaly Ext: ROM intact. No gross muscle atrophy, no edema, no contractures Neuro: Speech clear, face symmetrical and CN II-XII grossly intact with no noted focal neuro deficits Psych: Alert and oriented to person, place, time, and situation. Appropriate and pleasant affect. Results - Laboratory Findings CBC and BMP: 12/31/23 13:13 12/30/23 05:59 PT/INR, D-dimer PT 11.9 sec (10.0-12.5) 12/27/23 08:59 INR 1.1 (<1.2) 12/27/23 08:59 Abnormal lab findings: Abnormal Labs 12/26/23 12/27/23 12/27/23 16:50 08:59 08:59 Hgb Hct APTT Chloride 109 H Carbon Dioxide 19 L Glucose 121 H 152 H Calcium 10.6 H Triglycerides 165.00 H Cholesterol 253.00 H LDL Cholesterol, Calc 174.4 H 12/27/23 12/27/23 12/27/23 08:59 12:30 15:14 Hgb Hct APTT >200.0 H* 120.3 H* 89.3 H Chloride Carbon Dioxide Glucose Calcium Triglycerides Cholesterol LDL Cholesterol, Calc 12/27/23 12/28/23 12/29/23 23:51 09:12 09:20 Hgb Hct APTT 70.2 H 69.6 H 67.7 H Chloride Carbon Dioxide Glucose Calcium Triglycerides Cholesterol LDL Cholesterol, Calc 12/29/23 12/30/23 12/30/23 10:26 05:59 05:59 Hgb Hct APTT 75.7 H Chloride 108 H 108 H Carbon Dioxide 21 L Glucose 100 H Calcium Triglycerides Cholesterol LDL Cholesterol, Calc 12/31/23 13:13 Hgb 12.9 L Hct 38.9 L APTT Chloride Carbon Dioxide Glucose Calcium Triglycerides Cholesterol LDL Cholesterol, Calc Assessment and Plan Plan: Right carotid endarterectomy. The patient is postop day #0. Patient presented to us with TIA and transient episode of left-sided weakness and dysarthria and expressive aphasia and the patient was found to have critical right ICA occlusion and the patient is status post right carotid endarterectomy. Hypotension, expected outcome of carotid surgery along with some sinus bradycardia, currently on low-dose norepinephrine at 0.09 mcg/kg/min. Sinus bradycardia Hypertension Hyperlipidemia History of psoriatic arthritis maintained on Otezla on outpatient basis Plan Continue lactated Ringer at 75 cc an hour. The patient already received a bolus of 1 L. The patient is currently on norepinephrine for hemodynamic support. Monitor cardiac rhythm and the patient has some mild sinus bradycardia Surgical wound is dry clean and intact Continue aspirin and Plavix Continue high-dose statin with Lipitor 80 mg p.o. daily Neurochecks in the ICU Hold lisinopril and amlodipine for now We will continue to follow.
[2024-01-01 04:56] LABS: Basophils % (A) 0 %; Eosinophils % (A) 0 %; HCT 39.9 % (39.0-53.0); HGB 13.4 gm/dL (13.0-17.5); Lymphocytes # (A) 1.4 k/uL (1.0-4.8); Lymphocytes % (A) 10 %; MCH 29.5 pg (25.0-35.0); MCHC 33.7 g/dL (31.0-37.0); MCV 87.6 fL (80.0-100.0); Mean Platelet Volume 7.7; Monocytes # (A) 0.9 k/uL (0-1.0); Monocytes % (A) 7 %; Neutrophils # (A) 10.9 k/uL (1.3-7.7); Neutrophils % (A) 81 %; Platelet Count 334 k/uL (150-450); RBC 4.55 m/uL (4.30-5.90); RDW 13.6 % (11.5-15.5); WBC 13.4 k/uL (3.8-10.6)
[2024-01-01 05:14] LABS: African American GFR (CKD) >90 (>60 ml/min/1.73 sqM); Anion Gap 10 mmol/L; Blood Urea Nitrogen 13 mg/dL (9-20); Calcium 9.2 mg/dL (8.4-10.2); Carbon Dioxide 20 mmol/L (22-30); Chloride 109 mmol/L (98-107); Glucose 127 mg/dL (74-99); Non-African American GFR(CKD) >90 (>60 ml/min/1.73 sqM); Sodium 139 mmol/L (137-145)
[2024-01-01] MEDS: MULTIVITAMINS, THERA 1 EACH TAB PO SCH (07:48)
[2024-01-01] MEDS: ZINC SULFATE 220 MG CAP PO SCH (07:48)
[2024-01-01 09:48] VITALS: BMI 24.9
--- NOTE | 2024-01-01 10:17 | P.PN ---
Subjective Progress Note Date: 01/01/24 Principal diagnosis: Carotid stenosis Patient is seen and examined today as a follow-up. He is postop day #1 for right carotid endarterectomy. Yesterday he was sent to the cardiac stepdown unit however was found to be hypotensive. He was transferred to the ICU and started on levofed. Blood pressures have remained soft and he is still on Levophed. Home blood pressure medications are on hold. Patient denies any focal deficits. No difficulty with swallowing. He is urinating without any difficulty. Objective - Vital Signs Vital signs: Vital Signs Temp 97.7 F 01/01/24 04:00 Pulse 50 L 01/01/24 07:00 Resp 15 01/01/24 07:00 BP 121/72 01/01/24 07:00 Pulse Ox 98 01/01/24 07:00 FiO2 Intake & Output 12/31/23 01/01/24 01/01/24 18:59 06:59 18:59 Intake Total 3830.265 2235.354 203.668 Output Total 425 1650 350 Balance 1474.591 -473.646 -146.332 Weight 70.307 kg 70 kg Intake: IV 1092 900 75 Lactated Ringers 1,000 ml 75 900 75 @ 75 mls/hr IV .[id number] [facility] Rx#:[id number] Intake, IV Titration 327.591 276.354 128.668 Amount Lactated Ringers 1,000 ml 300 @ 75 mls/hr IV .[id number] [facility] Rx#:[id number] Norepinephrine 4 mg In 27.591 276.354 128.668 Sodium Chloride 0.9% 250 ml @ 0.03 MCG/KG/MIN 8. 036 mls/hr IV .Q24H [facility] Rx#:[id number] Oral 480 Output: Urine 400 1650 350 Estimated Blood Loss 25 Other: Voiding Method Toilet Urinal # Voids 1 1 - Exam General appearance: The patient is alert, oriented, appears in no acute distress. HET: Head is normocephalic and atraumatic. Pupils are equal and reactive. Neck: Supple. Right side of neck with incision well-approximated and glued with no surrounding hematoma, minimal bruising. Heart: Regular. Lungs: Equal expansion, normal respiratory effort. Abdomen: Soft, nontender, nondistended. Extremities: Normal skin color and turgor. Neurological: No focal deficits. Strength and sensation are grossly intact. - Labs CBC & Chem 7: 01/01/24 03:57 01/01/24 03:57 Labs: Abnormal Lab Results - Last 24 Hours (Table) 12/31/23 01/01/24 01/01/24 Range/Units 13:13 03:57 03:57 WBC 13.4 H (3.8-10.6) k/uL Hgb 12.9 L (13.0-17.5) gm/dL Hct 38.9 L (39.0-53.0) % Neutrophils # 10.9 H (1.3-7.7) k/uL Chloride 109 H (98-107) mmol/L Carbon Dioxide 20 L (22-30) mmol/L Glucose 127 H (74-99) mg/dL Assessment and Plan Assessment: 1. Postop day #1 right carotid artery endarterectomy 2. Severe symptomatic right internal carotid artery stenosis per CT angiogram 3. Left-sided weakness and difficulty with speech resolved, possible TIA 4. Hypertension 5. Psoriatic arthritis Plan: 1. Continue symptomatic and supportive care 2. Change blood pressure cuff to left arm, which we had seen improvement in blood pressures. Patient may have some degree of subclavian artery stenosis on that right side as well which may cause lower blood pressures 3. Trial to wean pressors 4. Agree to hold home blood pressure medications for now 5. Continue aspirin 81 mg, Plavix 75 mg and atorvastatin 80 mg at bedtime 6. Encourage ambulation 7. Rest of medical management per primary medical team and ICU rabbit dresser 8. If able to wean pressors and blood pressures remained stable patient can be considered for discharge home later today. 9. On discharge instructions reviewed with patient Thank you for this consultation, we will continue to follow. The impression and plan of care has been dictated as directed. I performed a history and examination of this patient, discussed the same with the dictator. I agree with the dictator's note ,documented as a scribe. Any additional findings or plans will be noted.
--- NOTE | 2024-01-01 13:02 | P.PN ---
Subjective Progress Note Date: 01/01/24 This is a 58-year-old male patient who presented with a TIA affecting the left arm and leg as well as the speech. The patient's symptoms resolved. Workup demonstrated a severe right ICA stenosis. For that reason, the patient was taken to the operating room and the patient underwent a right carotid end arterectomy with patch angioplasty. Postop, the patient was transferred to the medical floor and the patient was found to be hypotensive and for that reason, ICU monitoring was recommended. Based on that, the patient was transferred to the intensive care unit. Current BP is stable. The patient is currently on lactated Ringer at the rate of 75 cc an hour. The patient is also on low-dose norepinephrine 0.09 mcg/kg/min. He does have some sinus bradycardia. Adequate urine output. Surgical wound site is dry clean and intact. Neurologically intact at this point in time. His past medical history is positive for hypertension hyperlipidemia and psoriatic arthritis. The patient echocardiogram showed a preserved LV function with an ejection fraction of 55% and trace MR, trace TR. On today's evaluation of 01/01/2024, the patient is being seen for a follow-up. The patient is clinically stable. No neurologic deficits at this point in time. No difficulties with speech or swallowing. No weakness in the left upper and lower extremity. No facial asymmetry. Surgical wound site over the right carotid endarterectomy is clean and the patient is currently postop day #1. The patient remains on norepinephrine for hypotension overnight and the patient is currently on norepinephrine running at 0.06 mcg/kg/min. The patient also has some sinus bradycardia. Labs from today shows a WBC count of 13.4, he was 13.4 and a platelet count of 334. Electrolytes are unremarkable. Calcium levels at 9.2. The patient remains on aspirin and Plavix. Objective - Vital Signs Vital signs: Vital Signs Temp 97.5 F L 01/01/24 08:00 Pulse 52 L 01/01/24 08:00 Resp 15 01/01/24 08:00 BP 139/84 01/01/24 08:00 Pulse Ox 94 L 01/01/24 08:00 FiO2 Intake & Output 12/31/23 01/01/24 01/01/24 18:59 06:59 18:59 Intake Total 8174.883 2278.354 278.668 Output Total 425 1650 350 Balance 1474.591 -473.646 -71.332 Weight 70.307 kg 70 kg Intake: IV 1092 900 150 Lactated Ringers 1,000 ml 75 900 150 @ 75 mls/hr IV .[id number] [facility] Rx#:[id number] Intake, IV Titration 327.591 276.354 128.668 Amount Lactated Ringers 1,000 ml 300 @ 75 mls/hr IV .[id number] [facility] Rx#:[id number] Norepinephrine 4 mg In 27.591 276.354 128.668 Sodium Chloride 0.9% 250 ml @ 0.03 MCG/KG/MIN 8. 036 mls/hr IV .Q24H [facility] Rx#:[id number] Oral 480 Output: Urine 400 1650 350 Estimated Blood Loss 25 Other: Voiding Method Toilet Urinal Urinal # Voids 1 1 - Exam General: Nontoxic, no distress and appears stated age. Head exam was generally normal. There was no scleral icterus or corneal arcus. Mucous membranes were moist. Neck was supple and without jugular venous distension, thyromegaly, or carotid bruits. Carotids were easily palpable bilaterally. There was no adenopathy. Right carotid surgical wound site is dry clean and intact and there is no evidence of any bleed Derm: Skin warm and dry, normal coloration for ethnicity. Head: Atraumatic, normocephalic and symmetric. Eyes: EOMs intact, no lid lag, and anicteric sclera Mouth: no lip lesions, mucus membranes moist Cardiovascular: regular rate and rhythm with normal S1S2, no murmur, positive posterior tibial pulses bilaterally, and cap refill < 2 seconds. Lungs: Respirations even, regular, and unlabored on room air. Lungs CTA bilaterally, no rhonchi, no rales, no wheezing, and no accessory muscle usage. Abdominal: soft, nontender to palpation, no guarding, no appreciable organomegaly Ext: ROM intact. No gross muscle atrophy, no edema, no contractures Neuro: Speech clear, face symmetrical and CN II-XII grossly intact with no noted focal neuro deficits Psych: Alert and oriented to person, place, time, and situation. Appropriate and pleasant affect. - Labs CBC & Chem 7: 01/01/24 03:57 01/01/24 03:57 Labs: Abnormal Lab Results - Last 24 Hours (Table) 04/08/24 04/09/24 04/09/24 Range/Units 13:13 03:57 03:57 WBC 13.4 H (3.8-10.6) k/uL Hgb 12.9 L (13.0-17.5) gm/dL Hct 38.9 L (39.0-53.0) % Neutrophils # 10.9 H (1.3-7.7) k/uL Chloride 109 H (98-107) mmol/L Carbon Dioxide 20 L (22-30) mmol/L Glucose 127 H (74-99) mg/dL Assessment and Plan Plan: Right carotid endarterectomy. The patient is postop day #1 . Patient presented to us with TIA and transient episode of left-sided weakness and dysarthria and expressive aphasia and the patient was found to have critical right ICA occlusion and the patient is status post right carotid endarterectomy. Hypotension, expected outcome of carotid surgery along with some sinus bradycardia, currently on low-dose norepinephrine at 0.06 mcg/kg/min. Sinus bradycardia, stable Hypertension Hyperlipidemia History of psoriatic arthritis maintained on Otezla on outpatient basis Plan Continue lactated Ringer at 75 cc an hour. Wean off norepinephrine allowing a systolic blood pressure above 110 Monitor cardiac rhythm and the patient has some mild sinus bradycardia Surgical wound is dry clean and intact Continue aspirin and Plavix Continue high-dose statin with Lipitor 80 mg p.o. daily Neurochecks in the ICU Hold lisinopril and amlodipine for now We will continue to follow. Keep the patient in ICU as long as he is still pressor dependent.
[2024-01-01 13:09] VITALS: TEMP 98.2
[2024-01-01 15:13] VITALS: BP 108/74; PULSE 53; RESP 20
--- NOTE | 2024-01-01 15:18 | P.DS ---
Providers Date of admission: 12/26/23 20:18 Expected date of discharge: 01/01/24 Attending physician: Lilibeth Corcoran MD Consults: 12/26/23 20:19 Consult Physician Routine Consulting Provider: Albertina Borrego Consult Reason/Comments: ICAocclusion Do you want consulting provider notified?: Yes 12/27/23 04:53 Consult Physician Routine Consulting Provider: Gabby Montgomery Consult Reason/Comments: TIA Do you want consulting provider notified?: Yes, Notify in am 12/31/23 13:52 Consult Physician Routine Consulting Provider: Cecelia Conner Consult Reason/Comments: hypotension s/p endartectomy Do you want consulting provider notified?: Already Contacted Primary care physician: Miya Austin [facility] Hospital Course: Discharge Diagnosis: TIA with Transient episode of left-sided weakness with dysarthria and expressive aphasia Right ICA occlusion status post carotid endarterectomy Postoperative hypotension Hypercalcemia, resolved Hypertension Hyperlipidemia Psoriatic arthritis Hospital Course: Patient is a 58-year-old male with hypertension, dyslipidemia, psoriatic arthritis who presented to the ER with complaints of left upper and lower extremity weakness and cramping along with slurred speech and word finding difficulties. In the emergency department he underwent an extensive evaluation. On arrival he was hypertensive with a blood pressure of 174/103 and the remainder of his vital signs were within normal limits. Was negative for any acute intracranial abnormalities. Laboratory analysis was remarkable for a mildly elevated calcium at 10.6. CT of the head and neck was negative for any acute intracranial vessel occlusion, significant stenosis, or sizable aneurysm but did show mixed calcific plaque in the right ICA which was nearly occlusive. Patient was admitted for possible TIA. Neurology and vascular surgery were consulted. Echocardiogram was completed which showed an ejection fraction of 55% with no other structural abnormalities. Patient was started on a heparin infusion. Carotid Doppler showed less than 50% stenosis of the carotid bifurcations bilaterally. Area of the neck confirmed significant stenosis without complete occlusion of the right internal carotid artery. Patient subsequently underwent right carotid endarterectomy on 12/31/2023. Postoperatively he did develop significant hypotension requiring norepinephrine. This is able to be weaned off by the morning of 01/01/2024. Patient was doing well and was asymptomatic. After being off of vasopressor supports for 4 hours he was determined stable for discharge home. Follow-up: Lipitor 80 mg daily, aspirin 81 mg daily, Plavix 75 mg daily for 21 days and then can disconitnue. Follow-up with Dr. ruffin in 2 weeks, Dr. Huerta in 1-[address] Watson in 2 weeks. Medicines were held on discharge due to low blood pressures in the 100s. He was given instructions on when to re-start lisinopril based on daily blood pressure monitoring. Patient seen and examined at bedside.. Pain is well-controlled. No complaints at this time. Denies any lightheadedness, dizziness, chest pain, or shortness of breath. Vital signs reviewed and stable. General: Nontoxic, no distress, appears at stated age Cardiovascular: S1S2 reg, no murmur, positive posterior tibial pulse bilateral, Lungs: CTA bilateral, no rhonchi, no rales, no accessory muscle use Ext: No gross muscle atrophy, no edema b/l lower extremities, no contractures Neuro: CN II-XI grossly intact, no focal neuro deficits Psych: Alert, oriented, appropriate affect A total of 42 minutes of time were spent preparing this complex discharge summary. Patient was discharged on 01/01/24. This dictation was prepared using [employer]/20 voice recognition software. Though every attempt is made to correct errors during dictation some may still exist. Patient Condition at Discharge: Stable Plan - Discharge Summary Discharge Rx Participant: No New Discharge Prescriptions: New Aspirin 81 mg PO DAILY tab Atorvastatin [Lipitor] 80 mg PO HS #30 tab Clopidogrel [Plavix] 75 mg PO DAILY #21 tab Continue Zinc Gluconate [Zinc] 50 mg PO DAILY Apremilast [Otezla] 30 mg PO BID Mv-Min/Folic/K1/Lycopen/Lutein [Centrum Silver Men Tablet] 1 tab PO DAILY Discontinued Atorvastatin [Lipitor] 20 mg PO HS lisinopriL [Zestril] 20 mg PO DIRECTED amLODIPine 10 mg PO HS Discharge Medication List Apremilast [Otezla] 30 mg PO BID 12/26/23 [History] Mv-Min/Folic/K1/Lycopen/Lutein [Centrum Silver Men Tablet] 1 tab PO DAILY 12/26/23 [History] Zinc Gluconate [Zinc] 50 mg PO DAILY 12/26/23 [History] Aspirin 81 mg PO DAILY tab 01/01/24 [Rx] Atorvastatin [Lipitor] 80 mg PO HS #30 tab 01/01/24 [Rx] Clopidogrel [Plavix] 75 mg PO DAILY #21 tab 01/01/24 [Rx] Follow up Appointment(s)/Referral(s): James Weir DO [Doctor of Osteopathic Medicine] - 2 Weeks Samuel Huerta MD [REFERRING] - 1-2 days Ayan Chamorro MD [REFERRING] - 1 Week Patient Instructions/Handouts: Clopidogrel (By mouth) Activity/Diet/Wound Care/Special Instructions: Activity: As tolerated Diet: Recommend heart healthy diet Special Instructions: You will be discharged home on aspirin 81 mg tablet daily, Plavix 75 mg daily and a atorvastatin 80 mg at bedtime No strenuous activity or heavy lifting greater than 10 pounds. May shower tomorrow January 02, 2024 but no tub bathing or soaking. Watch incision site for infection including redness, drainage, or temperature greater than 100.4. If you notice he symptoms please call Dr. Ruffin's office. Check your blood pressure daily and resume lisinopril if your have 2 blood pressures with Systolic (top number) greater than 130 or Diastolic (bottom number) greater than 90. Discharge Disposition: HOME SELF-CARE
== END 2024-01-01 16:09 | disposition home or self-care (01) | DRG 38 ==
LOC: EC 16:41 → 3SCARD 20:18 → 2SICU 12-31 14:36
PROVIDERS: ADMIT Internal Medicine; ATTEND Internal Medicine
PROC: 03UH0KZ Supplement Right Common Carotid Artery with Nonautologous Tissue Substitute, Open Approach (ICD-10-PCS; principal; 2023-12-26)
PROC: 03CK0ZZ Extirpation of Matter from Right Internal Carotid Artery, Open Approach (ICD-10-PCS; principal; 2023-12-26)
PROC: 3E043XZ Introduction of Vasopressor into Central Vein, Percutaneous Approach (ICD-10-PCS; 2023-12-31)
DX: I65.21 Occlusion and stenosis of right carotid artery (principal); G81.94 Hemiplegia, unspecified affecting left nondominant side; R47.01 Aphasia; L40.50 Arthropathic psoriasis, unspecified; E78.5 Hyperlipidemia, unspecified; I95.9 Hypotension, unspecified; E83.52 Hypercalcemia; I10 Essential (primary) hypertension; Z79.899 Other long term (current) drug therapy; R47.1 Dysarthria and anarthria; R00.1 Bradycardia, unspecified; Z71.3 Dietary counseling and surveillance; Z28.310 Unvaccinated for COVID-19
CPT/HCPCS: 36415; 70450; 70496; 70498; 70549; 80048; 80053; 80061; 82550; 83036; 83735; 84443; 84484; 85025; 85027; 85610; 85730; 86850; 86900; 86901; 88304; 88311; 93005; 93306; 93880; 94760; 96360; 96361; 99291

== ENCOUNTER 2024-01-18 19:01 | Observation (INO) | payer BC ==
--- NOTE | 2024-01-18 19:40 | ED ---
General Adult HPI - General Source: patient Mode of arrival: ambulatory Limitations: no limitations <Cy Fenton - Last Filed: 01/18/24 19:39> <Tino Juarez - Last Filed: 01/18/24 22:43> - General Chief complaint: Recheck/Abnormal Lab/Rx Stated complaint: HTN,Post op Carotid Time Seen by Provider: 01/18/24 19:39 - History of Present Illness Initial comments: Quick note: This is a 58-year-old male with history of carotid endarterectomy 2 weeks ago presenting with chief complaint of lightheadedness and elevated blood pressure. Lightheadedness started today, patient checked his blood pressure as he has been regularly since his surgery and it was noted to be elevated. He is having no chest pain or difficulty breathing. No headache or neck pain. No vision or hearing changes. (Cy Fenton) Dictation was produced using [employer] dictation software. please excuse any grammatical, word or spelling errors. Chief Complaint: 58-year-old male presents to the emergency department for high blood pressure and dizziness History of Present Illness: Patient 58-year-old male who presents to the emergency department with high blood pressure and dizziness. Patient was feeling dizzy earlier today. States that he checked his blood pressure and it was pretty high. With systolic measuring is above 200. Patient recently had carotid endarterectomy performed by vascular surgeon earlier this month. States that his blood pressure has never been this high before. Patient does have history of high blood pressure managed with lisinopril monotherapy. Patient Nu[place] any chest pain. Denies any shortness of breath denies any strokelike symptoms. Denies any headache. The ROS documented in this emergency department record has been reviewed and confirmed by me. Those systems with pertinent positive or negative responses have been documented in the HPI. All other systems are other negative and/or noncontributory. (Tino Juarez) - Related Data Home Medications Medication Instructions Recorded Confirmed Apremilast [Otezla] 30 mg PO BID 12/26/23 12/26/23 Mv-Min/Folic/K1/Lycopen/Lutein 1 tab PO DAILY 12/26/23 12/26/23 [Centrum Silver Men Tablet] Zinc Gluconate [Zinc] 50 mg PO DAILY 12/26/23 12/26/23 Previous Rx's Medication Instructions Recorded Aspirin 81 mg PO DAILY tab 01/01/24 Atorvastatin [Lipitor] 80 mg PO HS #30 tab 01/01/24 Clopidogrel [Plavix] 75 mg PO DAILY #21 tab 01/01/24 Allergies Allergy/AdvReac Type Severity Reaction Status Date / Time No Known Allergies Allergy Verified 12/26/23 18:42 Review of Systems ROS Other: All systems not noted in ROS Statement are negative. <Cy Fenton - Last Filed: 01/18/24 19:39> ROS Other: All systems not noted in ROS Statement are negative. <Tino Juarez - Last Filed: 01/18/24 22:43> ROS Statement: Those systems with pertinent positive or pertinent negative responses have been documented in the HPI. Past Medical History Past Medical History: CVA/TIA, Hyperlipidemia, Hypertension, Osteoarthritis (OA) Additional Past Medical History / Comment(s): Psoriasis History of Any Multi-Drug Resistant Organisms: None Reported Past Surgical History: Orthopedic Surgery Additional Past Surgical History / Comment(s): arthroscopy knee Past Anesthesia/Blood Transfusion Reactions: No Reported Reaction Past Psychological History: No Psychological Hx Reported Smoking Status: Never smoker Past Alcohol Use History: Occasional Past Drug Use History: None Reported - Past Family History Mother Family Medical History: Cancer <Cy Fenton - Last Filed: 01/18/24 19:39> General Exam Limitations: no limitations <Cy Fenton - Last Filed: 01/18/24 19:39> <Tino Juarez - Last Filed: 01/18/24 22:43> - General Exam Comments Initial Comments: Visual Physical Exam Vital signs reviewed General: Well-appearing, nontoxic, no acute distress. Head: Normocephalic, atraumatic Eyes: PERRLA, EOMI ENT: Airway patent Chest: Nonlabored breathing Skin: No visual rash, normal skin tone Neuro: Alert and oriented 3 Musculoskeletal: No gross abnormalities (Cy Fenton) PHYSICAL EXAM: General Impression: Alert and oriented x3, not in acute distress HEENT: Normocephalic atraumatic, extra-ocular movements intact, pupils equal and reactive to light bilaterally, mucous membranes moist. Cardiovascular: Heart regular rate and rhythm Chest: Able to complete full sentences, no retractions, no tachypnea Abdomen: abdomen soft, non-tender, non-distended, no organomegaly Musculoskeletal: Pulses present and equal in all extremities, no peripheral edema Motor: no focal deficits noted Neurological: CN II-XII grossly intact, no focal motor or sensory deficits noted Skin: Intact with no visualized rashes Psych: Normal affect and mood (Tino Juarez) Course Vital Signs 01/18/24 01/18/24 01/18/24 19:14 19:24 20:50 Temperature 97.7 F Pulse Rate 81 75 Respiratory 20 Rate Blood Pressure 212/129 180/112 226/128 O2 Sat by Pulse 100 100 Oximetry 01/18/24 01/18/24 01/18/24 21:38 22:04 22:21 Temperature Pulse Rate 78 61 60 Respiratory 19 18 19 Rate Blood Pressure 194/128 156/110 159/107 O2 Sat by Pulse Oximetry Medical Decision Making <Cy Fenton - Last Filed: 01/18/24 19:39> - Lab Data Result diagrams: 01/18/24 19:57 01/18/24 19:57 <Tino Juarez - Last Filed: 01/18/24 22:43> - Medical Decision Making I performed the quick note portion of this visit, electronically signed Cy Fenton PA-C (Cy Fenton) Was pt. sent in by a medical professional or institution (POLI Vargas, [employer] INSPECTOR, urgent care, hospital, or group home...) When possible be specific @ -No Did you speak to anyone other than the patient for history (EMS, parent, family, police, friend...)? What history was obtained from this source @ -No Did you review nursing and triage notes (agree or disagree)? Why? @ -I reviewed and agree with nursing and triage notes Were old charts reviewed (outside hosp., previous admission, EMS record, old EKG, old radiological studies, urgent care reports/EKG's, group home records)? Report findings @ -No old charts were reviewed Differential Diagnosis (chest pain, altered mental status, abdominal pain women, abdominal pain men, vaginal bleeding, musculoskeletal, weakness, fever, dyspnea, syncope, headache, dizziness, GI bleed, back pain, seizure, CVA, palpatations, mental health)? @ -Differential Dizziness: Benign paroxysmal positional Vertigo, Menieres disease, otitis media, acoustic neuroma, vertebrobasilar insufficiency, cerebellar stroke, encephalitis, hypovolemic, arrhythmia, coronary artery syndrome, anemia, this is not meant to be an all-inclusive list EKG interpreted by me (3pts min.). @ -None done X-rays interpreted by me (1pt min.). @ -None done CT interpreted by me (1pt min.). @ - U/S interpreted by me (1pt. min.). @ -None done What testing was considered but not performed or refused? (CT, X-rays, U/S, labs)? Why? @ -None What meds were considered but not given or refused? Why? @ -None Did you discuss the management of the patient with other professionals (professionals i.e. , PA, [employer] INSPECTOR, lab, RT, psych nurse, licensed social worker, production planner scheduler, teacher, special police officer, trimming caser)? Give summary @ -Case discussed with hospitalist for admission Was smoking cessation discussed for >3mins.? @ -No Was critical care preformed (if so, how long)? @ -No Were there social determinants of health that impacted care today? How? (Homelessness, low income, unemployed, alcoholism, drug addiction, transportation, low edu. Level, literacy, decrease access to med. care, usp, rehab)? @ -No Was there de-escalation of care discussed even if they declined (Discuss DNR or withdrawal of care, Hospice)? DNR status @ -No What co-morbidities impacted this encounter? (DM, HTN, Smoking, COPD, CAD, Cancer, CVA, ARF, Chemo, Hep., AIDS, mental health diagnosis, sleep apnea, morbid obesity)? @ -None Was patient admitted / discharged? Hospital course, mention meds given and route, prescriptions, significant lab abnormalities, going to OR and other pertinent info. @ -58-year-old male presents emergency department with dizziness and hypertension. Clinical presentation suspicious for symptomatic hypertension. He does not have any hypertensive emergency symptoms. Vital signs shows blood pressure as high as 226/128. Patient given labetalol improvement of blood pressure. There is concern that acutely elevated blood pressures may affect his recent carotid endarterectomy surgery. Patient has no focal symptoms. His NIH score is 0. He has no focal neurologic deficits. Patient will be admitted with consultation to cardiology for inpatient blood pressure treatment Undiagnosed new problem with uncertain prognosis? @ -No Drug Therapy requiring intensive monitoring for toxicity (Heparin, Nitro, Insulin, Cardizem)? @ -No Were any procedures done? @ -No Diagnosis/symptom? Acute, or Chronic, or Acute on Chronic? Uncomplicated (without systemic symptoms) or Complicated (systemic symptoms)? @ -Hypertension Side effects of treatment? @ -No Exacerbation, Progression, or Severe Exacerbation? @ -No Poses a threat to life or bodily function? How? (Chest pain, USA, MA, pneumonia, PE, COPD, DKA, ARF, appy, cholecystitis, CVA, Diverticulitis, Homicidal, Suicidal, threat to staff... and all critical care pts) @ -yes (Tino Juarez) - Lab Data Lab Results 01/18/24 01/18/24 01/18/24 Range/Units 19:57 19:57 19:57 WBC 5.9 (3.8-10.6) k/uL RBC 4.86 (4.30-5.90) m/uL Hgb 14.1 (13.0-17.5) gm/dL Hct 42.1 (39.0-53.0) % MCV 86.6 (80.0-100.0) fL MCH 29.1 (25.0-35.0) pg MCHC 33.6 (31.0-37.0) g/dL RDW 12.9 (11.5-15.5) % Plt Count 282 (150-450) k/uL MPV 6.8 Neutrophils % 62 % Lymphocytes % 28 % Monocytes % 5 % Eosinophils % 2 % Basophils % 1 % Neutrophils # 3.6 (1.3-7.7) k/uL Lymphocytes # 1.6 (1.0-4.8) k/uL Monocytes # 0.3 (0-1.0) k/uL Eosinophils # 0.1 (0-0.7) k/uL Basophils # 0.1 (0-0.2) k/uL PT 10.6 (10.0-12.5) sec INR 1.0 (<1.2) APTT 28.6 (22.0-30.0) sec Sodium 143 (137-145) mmol/L Potassium 3.8 (3.5-5.1) mmol/L Chloride 108 H (98-107) mmol/L Carbon Dioxide 26 (22-30) mmol/L Anion Gap 9 mmol/L BUN 7 L (9-20) mg/dL Creatinine 0.90 (0.66-1.25) mg/dL Est GFR (CKD-EPI)AfAm >90 (>60 ml/min/1.73 sqM) Est GFR (CKD-EPI)NonAf >90 (>60 ml/min/1.73 sqM) Glucose 97 (74-99) mg/dL Calcium 9.6 (8.4-10.2) mg/dL Magnesium 2.1 (1.6-2.3) mg/dL Total Bilirubin 0.6 (0.2-1.3) mg/dL AST 31 (17-59) U/L ALT 45 (4-49) U/L Alkaline Phosphatase 54 (38-126) U/L Troponin I (0.000-0.034) ng/mL Total Protein 7.8 (6.3-8.2) g/dL Albumin 4.7 (3.5-5.0) g/dL 01/18/24 Range/Units 19:57 WBC (3.8-10.6) k/uL RBC (4.30-5.90) m/uL Hgb (13.0-17.5) gm/dL Hct (39.0-53.0) % MCV (80.0-100.0) fL MCH (25.0-35.0) pg MCHC (31.0-37.0) g/dL RDW (11.5-15.5) % Plt Count (150-450) k/uL MPV Neutrophils % % Lymphocytes % % Monocytes % % Eosinophils % % Basophils % % Neutrophils # (1.3-7.7) k/uL Lymphocytes # (1.0-4.8) k/uL Monocytes # (0-1.0) k/uL Eosinophils # (0-0.7) k/uL Basophils # (0-0.2) k/uL PT (10.0-12.5) sec INR (<1.2) APTT (22.0-30.0) sec Sodium (137-145) mmol/L Potassium (3.5-5.1) mmol/L Chloride (98-107) mmol/L Carbon Dioxide (22-30) mmol/L Anion Gap mmol/L BUN (9-20) mg/dL Creatinine (0.66-1.25) mg/dL Est GFR (CKD-EPI)AfAm (>60 ml/min/1.73 sqM) Est GFR (CKD-EPI)NonAf (>60 ml/min/1.73 sqM) Glucose (74-99) mg/dL Calcium (8.4-10.2) mg/dL Magnesium (1.6-2.3) mg/dL Total Bilirubin (0.2-1.3) mg/dL AST (17-59) U/L ALT (4-49) U/L Alkaline Phosphatase (38-126) U/L Troponin I <0.012 (0.000-0.034) ng/mL Total Protein (6.3-8.2) g/dL Albumin (3.5-5.0) g/dL Disposition <Cy Fenton - Last Filed: 01/18/24 19:39> Decision Time: 22:33 <Tino Juarez - Last Filed: 01/18/24 22:43> Clinical Impression: Hypertension Disposition: ADMITTED IP TO THIS HOSP Condition: Fair Referrals: Jeff Huff MD [Primary Care Provider] - 1-2 days
[2024-01-18 20:09] LABS: Basophils # (A) 0.1 k/uL (0-0.2); Basophils % (A) 1 %; Eosinophils # (A) 0.1 k/uL (0-0.7); Eosinophils % (A) 2 %; HCT 42.1 % (39.0-53.0); HGB 14.1 gm/dL (13.0-17.5); Lymphocytes # (A) 1.6 k/uL (1.0-4.8); Lymphocytes % (A) 28 %; MCH 29.1 pg (25.0-35.0); MCHC 33.6 g/dL (31.0-37.0); MCV 86.6 fL (80.0-100.0); Mean Platelet Volume 6.8; Monocytes # (A) 0.3 k/uL (0-1.0); Monocytes % (A) 5 %; Neutrophils # (A) 3.6 k/uL (1.3-7.7); Neutrophils % (A) 62 %; Platelet Count 282 k/uL (150-450); RBC 4.86 m/uL (4.30-5.90); RDW 12.9 % (11.5-15.5); WBC 5.9 k/uL (3.8-10.6)
[2024-01-18 20:26] LABS: ALT 45 U/L (4-49); AST 31 U/L (17-59); African American GFR (CKD) >90 (>60 ml/min/1.73 sqM); Albumin 4.7 g/dL (3.5-5.0); Alkaline Phosphatase 54 U/L (38-126); Anion Gap 9 mmol/L; Blood Urea Nitrogen 7 mg/dL (9-20); Calcium 9.6 mg/dL (8.4-10.2); Carbon Dioxide 26 mmol/L (22-30); Chloride 108 mmol/L (98-107); Glucose 97 mg/dL (74-99); Magnesium 2.1 mg/dL (1.6-2.3); Non-African American GFR(CKD) >90 (>60 ml/min/1.73 sqM); Potassium 3.8 mmol/L (3.5-5.1); Sodium 143 mmol/L (137-145); Total Bilirubin 0.6 mg/dL (0.2-1.3); Total Protein 7.8 g/dL (6.3-8.2)
[2024-01-18 21:33] LABS: Partial Thromboplastin Time 28.6 sec (22.0-30.0); Prothrombin Time 10.6 sec (10.0-12.5)
[2024-01-18] MEDS: LABETALOL 5 MG/ML VIAL MDV IVP STA ×2 (21:40→22:25)
[2024-01-18] MEDS ORDERED: NALOXONE 0.4 MG/ML 1 ML VIAL IV PRN (22:29)
[2024-01-18] MEDS ORDERED: ONDANSETRON 4 MG/2 ML VIAL IVP PRN (22:29)
[2024-01-18] MEDS ORDERED: LABETALOL 5 MG/ML VIAL MDV IVP PRN (22:30)
[2024-01-19] MEDS: SODIUM CHLORIDE 0.9% 1,000 ML IV SCH (00:12)
--- NOTE | 2024-01-19 03:10 | CT ---
EXAMINATION TYPE: CT brain wo con CT DLP: 1526.2 combined mGycm, Automated exposure control for dose reduction was used. DATE OF EXAM: 01/18/2024 9:49 PM COMPARISON: CT brain, CT angiogram head and neck from 12/26/2023. Ultrasound Carotid 12/27/2023. MR angio gram neck 12/28/2023. 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 Contrast used: None. Oral contrast used: None. FINDINGS: Extra-axial spaces: No abnormal extra-axial fluid collections. Basilar cisterns are patent. Ventricular system: Within normal limits. Cerebral parenchyma: No increased attenuation to suggest acute intraparenchymal hemorrhage. The gra y-white matter interface appears maintained. No significant atrophy. White matter unremarkable by C T. Faint basal ganglia mineralization again seen. Note that a small rounded focus of apparent increa sed attenuation in the inferior right frontal lobe on image 30 is shown to represent volume averaging based on review of multiplanar reformats. Cerebellum: No acute abnormality. Mass effect: No evidence of mass effect or midline shift. Intracranial vasculature: Unremarkable Soft tissues: No acute or concerning abnormality. Visualized orbits: Orbital contents appear grossly intact. Calvarium/osseous structures: No evidence of calvarial fracture. Paranasal sinuses and mastoid air cells: Clear. Nasal septal deviation again seen. MRI is more sensitive for detecting acute processes such as infarct, and may be considered if clinica lly warranted. IMPRESSION: * No acute intracranial abnormality. * No significant change from prior CT exam.
--- NOTE | 2024-01-19 05:36 | CT ---
EXAMINATION TYPE: CT angio head neck DATE OF EXAM: 01/19/2024 4:42 AM COMPARISON: Same day CT head. CT angiogram head and neck and CT head 12/26/2023. 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 Axi al images are supplemented with 3D reconstructions which were [facility] at [facility] NASCET criteria used. Contrast used: 100 mL of Isovue 370 with IV Contrast, Oral contrast used: None. CT DLP: 1526.2 combined mGycm, Automated exposure control for dose reduction was used. FINDINGS: CTA Neck: Compared to the prior CT angiogram, there has been no change in the appearance of the aortic arch or proximal branch vessels. Proximal aspects of the common carotids again appear normally patent. At the left carotid bifurcation there is again mostly calcified plaque at the bifurcation and proxima l ICA resulting in less than 50% diameter stenosis. Left ICA is thereafter patent to the skull base. At the distal right common carotid, bifurcation, and proximal ICA, there has been marked interval red uction in the plaque likely result of endarterectomy. The previous plaque and associated near occlusi ve stenosis is no longer identified, and these vessels are now widely patent. There is again a small calcification noted in the proximal right ECA, which remains patent. Of note, there is no evidence of pseudoaneurysm, dissection, or active contrast extravasation in the region of surgery. There is mild surrounding soft tissue edema in the neck which is not inconsistent with recent surgery. The ICAs then appear normally patent to the skull base. The vertebral arteries appear patent and unchanged from prior. Degenerative changes of the cervical spine without evidence of acute bony abnormality. No acute soft tissue findings otherwise in the neck. The visualized lung apices remain clear, without evidence of p neumothorax. CTA Head: Posterior circulation arteries appear stable from prior. Vertebrobasilar system remains patent. Anteriorly there are again mild calcifications of the siphon portions of the ICAs without significant stenosis. Patent carotid termini with patent bilateral ACAs, and anterior communicating artery. On t he left, there is a stable appearance of what appear to be essentially duplicated MCA's. On the right , the MCA appears unchanged. No intracranial large vessel occlusion, hemodynamically significant stenosis, aneurysm, dissection, o r arteriovenous malformation is shown. The dural venous sinuses appear grossly patent without evidence of thrombosis. Redemonstration of a s mall arachnoid granulation associated with the left transverse sinus. Other: Please refer to same-day CT head report.. IMPRESSION: CTA neck: 1. Interval surgery has been performed, with the previous heavy mixed plaque at the right CCA bifurc ation and proximal right ICA (and associated near-occlusive stenosis) essentially no longer present. The vessels now appear widely patent, without evidence of complication. 2. Mild mostly calcified plaque in the proximal left ICA without significant stenosis, unchanged. 3. There remains no evidence of dissection or pseudoaneurysm in the carotid or vertebral arteries in the neck. CTA head: 1. Patent CTA head, with findings unchanged from the previous study.
--- NOTE | 2024-01-19 07:06 | XR ---
EXAMINATION TYPE: XR chest 2V DATE OF EXAM: 01/18/2024 8:15 PM CLINICAL INDICATION:Male, 58 years old with history of Chest Pain; [facility] COMPARISON: Single view chest x-ray 05/29/2011 TECHNIQUE: XR chest 2V. Frontal and lateral views of the chest.. FINDINGS: Lines/Tubes/Devices: No indwelling lines are seen. Heart/mediastinum: Heart size is normal. Aorta appears mildly tortuous but essentially follows the s courtney curvature. Trachea appears patent. Pulmonary vascularity: Not increased, Lungs/Pleura: There is no evidence of pleural effusion, focal consolidation, or pneumothorax. Some h aziness to the medial lungs could be related to the scoliosis. Musculoskeletal: No acute osseous abnormality demonstrated in the limits of the exam. Moderate apex r ight thoracic scoliosis appears progressed from the prior exam. Other findings: None. IMPRESSION: 1. No acute cardiopulmonary abnormality. 2. Moderate apex right thoracic scoliotic curvature.
[2024-01-19] MEDS: lisinopriL 20 MG TAB PO SCH (08:25)
[2024-01-19] MEDS: ASPIRIN 81 MG PO SCH (08:25)
[2024-01-19] MEDS: CLOPIDOGREL 75 MG TAB PO SCH (08:25)
[2024-01-19] MEDS: amLODIPine 5 MG TAB PO SCH (08:25)
--- NOTE | 2024-01-19 09:03 | P.CRDCN ---
History of Present Illness History of present illness: HISTORY OF PRESENT ILLNESS: This is a 58-year-old male with a past medical history significant for TIA, hypertension, hyperlipidemia, and recent right carotid endarterectomy on 12/31/2023. 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 We have been asked to see the patient in consultation for hypertension. Patient examined at the bedside in the emergency room. Patient recently underwent right carotid endarterectomy on 12/31/2023. Patient states prior to his surgery he was taking amlodipine. He states after his surgery he was switched to lisinopril. He states he was instructed to check his blood pressure daily. He states his blood pressure has been well-controlled except yesterday his blood pressure spiked out of nowhere. Patient states he has been compliant with his medications. Blood pressure on admission was found to be 212/129. Patient was given labetalol in the emergency room. Most recent blood pressure 129/93. DIAGNOSTICS: - No EKG is available at the time of this dictation - Chest xray negative for acute process. - Laboratory data: WBC 5.9. Hemoglobin 14.1. Platelet count 282. Sodium 143. Potassium 3.8. BUN 7. Creatinine 0.90. Magnesium 2.1. Troponin negative x 1 - Current home cardiac medication list has not been updated at the time of dictation - Most recent echocardiogram obtained in 2023 reveals ejection fraction 55%, trace TR REVIEW OF SYSTEMS: At the time of my exam: CONSTITUTIONAL: Denies fever or chills. HEENT: Denies blurred vision, vision changes, or eye pain. Denies hemoptysis CARDIOVASCULAR: Denies chest pain. Denies orthopnea. Denies PND. Denies palpitations RESPIRATORY: Denies shortness of breath. GASTROINTESTINAL: Denies abdominal pain. Denies nausea or vomiting. HEMATOLOGIC: Denies bleeding disorders. GENITOURINARY: Denies any blood in urine. SKIN: Denies pruitis. Denies rash. PHYSICAL EXAM: VITAL SIGNS: Reviewed. GENERAL: Well-developed in no acute distress. HEENT: Incision site to right neck is clean dry and intact without signs of infection. Head is normocephalic. Pupils are equal, round. Sclerae anicteric. Mucous membranes of the mouth are moist. Neck supple. No JVD or thyromegaly LUNGS: Respirations even and unlabored. Lungs essentially clear to auscultation bilaterally. HEART: Regular rate and rhythm. S1 and S2 heard. ABDOMEN: Soft. Nondistended. Nontender. EXTREMITIES: Normal range of motion. No clubbing or cyanosis. Peripheral pulses intact. No lower extremity edema NEUROLOGIC: Awake and alert. Oriented x 3. ASSESSMENT: Hypertensive emergency Recent right carotid endarterectomy, 12/31/2023 Hypertension Hyperlipidemia History of TIA PLAN: No need to repeat echocardiogram as this was performed earlier this month Resume aspirin, Plavix, and Lipitor Resume lisinopril 20 mg daily Add Norvasc 5 mg daily Continue to monitor blood pressure Obtain EKG and scan into [place] when completed Further recommendations pending patient course Nurse practitioner note has been reviewed by physician. Signing provider agrees with the documented findings, assessment, and plan of care documented by SCOUT as a scribe. Past Medical History Past Medical History: CVA/TIA, Hyperlipidemia, Hypertension, Osteoarthritis (OA) Additional Past Medical History / Comment(s): Psoriasis History of Any Multi-Drug Resistant Organisms: None Reported Past Surgical History: Orthopedic Surgery Additional Past Surgical History / Comment(s): arthroscopy knee Past Anesthesia/Blood Transfusion Reactions: No Reported Reaction Past Psychological History: No Psychological Hx Reported Smoking Status: Never smoker Past Alcohol Use History: Occasional Past Drug Use History: None Reported - Past Family History Mother Family Medical History: Cancer Medications and Allergies Home Medications Medication Instructions Recorded Confirmed Type Apremilast [Otezla] 30 mg PO BID 12/26/23 01/19/24 History Mv-Min/Folic/K1/Lycopen/Lutein 1 tab PO DAILY 12/26/23 01/19/24 History [Centrum Silver Men Tablet] Zinc Gluconate [Zinc] 50 mg PO DAILY 12/26/23 01/19/24 History Aspirin 81 mg PO DAILY tab 01/01/24 01/19/24 Rx Clopidogrel [Plavix] 75 mg PO DAILY #21 tab 01/01/24 01/19/24 Rx Rosuvastatin Calcium [Crestor] 40 mg PO HS 01/19/24 01/19/24 History lisinopriL [Zestril] 20 mg PO DAILY 01/19/24 01/19/24 History Allergies Allergy/AdvReac Type Severity Reaction Status Date / Time No Known Allergies Allergy Verified 01/19/24 09:08 Physical Exam Vitals: Vital Signs Temp Pulse Resp BP Pulse Ox 01/19/24 06:10 56 L 18 129/93 99 01/19/24 04:26 55 L 18 108/85 98 01/19/24 01:39 51 L 19 01/19/24 00:11 60 19 129/96 01/18/24 22:21 60 19 159/107 01/18/24 22:04 61 18 156/110 01/18/24 21:38 78 19 194/128 01/18/24 20:50 75 226/128 100 01/18/24 19:24 180/112 01/18/24 19:14 97.7 F 81 20 212/129 100 Intake and Output 01/18/24 01/19/24 01/19/24 22:59 06:59 14:59 Other: Weight 65.771 kg Results 01/18/24 19:57 01/18/24 19:57 Cardiac Enzymes 01/18/24 01/18/24 Range/Units 19:57 19:57 AST 31 (17-59) U/L Troponin I <0.012 (0.000-0.034) ng/mL Coagulation 01/18/24 Range/Units 19:57 PT 10.6 (10.0-12.5) sec APTT 28.6 (22.0-30.0) sec CBC 01/18/24 Range/Units 19:57 WBC 5.9 (3.8-10.6) k/uL RBC 4.86 (4.30-5.90) m/uL Hgb 14.1 (13.0-17.5) gm/dL Hct 42.1 (39.0-53.0) % Plt Count 282 (150-450) k/uL Comprehensive Metabolic Panel 01/18/24 Range/Units 19:57 Sodium 143 (137-145) mmol/L Potassium 3.8 (3.5-5.1) mmol/L Chloride 108 H (98-107) mmol/L Carbon Dioxide 26 (22-30) mmol/L BUN 7 L (9-20) mg/dL Creatinine 0.90 (0.66-1.25) mg/dL Glucose 97 (74-99) mg/dL Calcium 9.6 (8.4-10.2) mg/dL AST 31 (17-59) U/L ALT 45 (4-49) U/L Alkaline Phosphatase 54 (38-126) U/L Total Protein 7.8 (6.3-8.2) g/dL Albumin 4.7 (3.5-5.0) g/dL Current Medications Generic Name Dose Route Start Last Admin Trade Name Freq PRN Reason Stop Dose Admin Sodium Chloride 1,000 mls @ 20 mls/hr 01/18/24 22:30 01/19/24 00:12 Saline 0.9% IV 20 mls/hr .Q24H ASHER Administration Labetalol HCl 10 mg 01/18/24 22:30 Labetalol 5 Mg/Ml Vial Mdv IVP ONCE PRN Hypertension Naloxone HCl 0.2 mg 01/18/24 22:29 Naloxone 0.4 Mg/Ml 1 Ml Vial IV Q2M PRN Opioid Reversal Ondansetron HCl 4 mg 01/18/24 22:29 Ondansetron 4 Mg/2 Ml Vial IVP Q8HR PRN Nausea And Vomiting Intake and Output 01/18/24 01/19/24 01/19/24 22:59 06:59 14:59 Other: Weight 65.771 kg 01/18/24 19:57 01/18/24 19:57
[2024-01-19] MEDS ORDERED: ACETAMINOPHEN TAB 325 MG TAB PO PRN (09:55)
[2024-01-19] MEDS: APREMILAST 30 MG PO SCH (10:02)
--- NOTE | 2024-01-19 12:49 | P.HPIM ---
History of Present Illness H&P Date: 01/19/24 Chief Complaint: Dizziness * 58-year-old gentleman with past medical history significant for carotid artery stenosis s/p right carotid endarterectomy December 31, 2023, hypertension, hyperlipidemia, history of TIA who presents to the emergency department with complaints of dizziness. * Postprocedure patient antihypertensive medications had been adjusted, at the time of admission patient was noted to have a blood pressure of 212 x 129. Patient was given a dose of labetalol in the emergency after significant improvement in blood pressure noted cardiology was consulted for further evaluation * Workup in ER included basic metabolic panel which showed sodium of 143 creatinine of 0.9, potassium 3.8 magnesium 2.1 initial troponin obtained which was negative * Chest x-ray obtained was negative for intrathoracic process * Patient was seen by cardiology for further management to be admitted to medical floor and monitored with potential discharge once blood pressure stabilized REVIEW OF SYSTEMS: CONSTITUTIONAL: No fever, no malaise, no fatigue. HEENT: No recent visual problems or hearing problems. Denied any sore throat. CARDIOVASCULAR: No chest pain, orthopnea, PND, no palpitations, no syncope. PULMONARY: No shortness of breath, no cough, no hemoptysis. GASTROINTESTINAL: No diarrhea, no nausea, no vomiting, no abdominal pain. NEUROLOGICAL: No headaches, no weakness, no numbness. HEMATOLOGICAL: Denies any bleeding or petechiae. GENITOURINARY: Denies any burning micturition, frequency, or urgency. MUSCULOSKELETAL/RHEUMATOLOGICAL: Denies any joint pain, swelling, or any muscle pain. ENDOCRINE: Denies any polyuria or polydipsia. PHYSICAL EXAMINATION: GENERAL: The patient is alert and oriented x3, s/p right carotid endarterectomy incision healing well HEENT: Pupils are round and equally reacting to light. EOMI. Normocephalic, atraumatic. No pharyngeal erythema. No thyromegaly. CARDIOVASCULAR: S1 and S2 present. No murmurs, rubs, or gallops. PULMONARY: Chest is clear to auscultation, no wheezing or crackles. ABDOMEN: Soft, nontender, nondistended, normoactive bowel sounds. No palpable organomegaly. MUSCULOSKELETAL: No joint swelling or deformity. EXTREMITIES: No cyanosis, clubbing, or pedal edema. NEUROLOGICAL: Gross neurological examination did not reveal any focal deficits. Assessment and plan * Hypertensive urgency * Carotid artery stenosis s/p right carotid endarterectomy * Hypertension * history of TIA * Hyperlipidemia * In regards to hypertensive urgency, cardiac medications adjusted. Continue lisinopril, amlodipine * Regards to carotid artery stenosis continue aspirin, Plavix, Lipitor * In regards to history of TIA continue aspirin, Plavix, Lipitor * Status is full code Past Medical History Past Medical History: CVA/TIA, Hyperlipidemia, Hypertension, Osteoarthritis (OA) Additional Past Medical History / Comment(s): Psoriasis History of Any Multi-Drug Resistant Organisms: None Reported Past Surgical History: Orthopedic Surgery Additional Past Surgical History / Comment(s): arthroscopy knee Past Anesthesia/Blood Transfusion Reactions: No Reported Reaction Past Psychological History: No Psychological Hx Reported Smoking Status: Never smoker Past Alcohol Use History: Occasional Past Drug Use History: None Reported - Past Family History Mother Family Medical History: Cancer Medications and Allergies Home Medications Medication Instructions Recorded Confirmed Type Apremilast [Otezla] 30 mg PO BID 12/26/23 01/19/24 History Mv-Min/Folic/K1/Lycopen/Lutein 1 tab PO DAILY 12/26/23 01/19/24 History [Centrum Silver Men Tablet] Zinc Gluconate [Zinc] 50 mg PO DAILY 12/26/23 01/19/24 History Aspirin 81 mg PO DAILY tab 01/01/24 01/19/24 Rx Clopidogrel [Plavix] 75 mg PO DAILY #21 tab 01/01/24 01/19/24 Rx Rosuvastatin Calcium [Crestor] 40 mg PO HS 01/19/24 01/19/24 History lisinopriL [Zestril] 20 mg PO DAILY 01/19/24 01/19/24 History Allergies Allergy/AdvReac Type Severity Reaction Status Date / Time No Known Allergies Allergy Verified 01/19/24 09:08 Physical Exam Vitals: Vital Signs Temp Pulse Resp BP Pulse Ox 01/19/24 09:02 58 L 181 H 123/91 98 01/19/24 06:10 56 L 18 129/93 99 01/19/24 04:26 55 L 18 108/85 98 01/19/24 01:39 51 L 19 01/19/24 00:11 60 19 129/96 01/18/24 22:21 60 19 159/107 01/18/24 22:04 61 18 156/110 01/18/24 21:38 78 19 194/128 01/18/24 20:50 75 226/128 100 01/18/24 19:24 180/112 01/18/24 19:14 97.7 F 81 20 212/129 100 Intake and Output 01/18/24 01/19/24 01/19/24 22:59 06:59 14:59 Other: Weight 65.771 kg Results CBC & Chem 7: 01/18/24 19:57 01/18/24 19:57 Labs: Abnormal Lab Results - Last 24 Hours (Table) 01/18/24 Range/Units 19:57 Chloride 108 H (98-107) mmol/L BUN 7 L (9-20) mg/dL
[2024-01-19] MEDS: ATORVASTATIN 80 MG TAB PO SCH (20:43)
[2024-01-19] MEDS ORDERED: ATORVASTATIN 80 MG TAB PO SCH (21:00)
[2024-01-20 09:15] VITALS: RESP 16; TEMP 97.9
--- NOTE | 2024-01-20 14:19 | P.DS ---
Providers Date of admission: 01/18/24 22:30 Expected date of discharge: 01/20/24 Attending physician: Nanci Gonzalez MD Consults: 01/18/24 22:29 Consult Physician Routine Consulting Provider: Dustin Strauss Consult Reason/Comments: hypertension Do you want consulting provider notified?: Yes Primary care physician: Jeff Huff MD Hospital Course: * 58-year-old gentleman with past medical history significant for carotid artery stenosis s/p right carotid endarterectomy December 31, 2023, hypertension, hyperlipidemia, history of TIA who presents to the emergency department with complaints of dizziness. * Postprocedure patient antihypertensive medications had been adjusted, at the time of admission patient was noted to have a blood pressure of 212 x 129. Patient was given a dose of labetalol in the emergency after significant improvement in blood pressure noted cardiology was consulted for further evaluation * Workup in ER included basic metabolic panel which showed sodium of 143 creatinine of 0.9, potassium 3.8 magnesium 2.1 initial troponin obtained which was negative * Chest x-ray obtained was negative for intrathoracic process * Patient was seen by cardiology for further management to be admitted to medical floor and monitored with potential discharge once blood pressure stabilized * 01/20/24: Patient seen and evaluated at bedside patient remains in emergency, b lood pressure remained stable, patient to be discharged home started on amlodipine prescription provided. Rest of home medications continued patient given instructions to monitor blood pressure. If a month symptomatic will need to come back to emergency REVIEW OF SYSTEMS: CONSTITUTIONAL: No fever, no malaise, no fatigue. HEENT: No recent visual problems or hearing problems. Denied any sore throat. CARDIOVASCULAR: No chest pain, orthopnea, PND, no palpitations, no syncope. PULMONARY: No shortness of breath, no cough, no hemoptysis. GASTROINTESTINAL: No diarrhea, no nausea, no vomiting, no abdominal pain. NEUROLOGICAL: No headaches, no weakness, no numbness. HEMATOLOGICAL: Denies any bleeding or petechiae. GENITOURINARY: Denies any burning micturition, frequency, or urgency. MUSCULOSKELETAL/RHEUMATOLOGICAL: Denies any joint pain, swelling, or any muscle pain. ENDOCRINE: Denies any polyuria or polydipsia. PHYSICAL EXAMINATION: GENERAL: The patient is alert and oriented x3, s/p right carotid endarterectomy incision healing well HEENT: Pupils are round and equally reacting to light. EOMI. Normocephalic, atraumatic. No pharyngeal erythema. No thyromegaly. CARDIOVASCULAR: S1 and S2 present. No murmurs, rubs, or gallops. PULMONARY: Chest is clear to auscultation, no wheezing or crackles. ABDOMEN: Soft, nontender, nondistended, normoactive bowel sounds. No palpable organomegaly. MUSCULOSKELETAL: No joint swelling or deformity. EXTREMITIES: No cyanosis, clubbing, or pedal edema. NEUROLOGICAL: Gross neurological examination did not reveal any focal deficits. Assessment and plan * Hypertensive urgency * Carotid artery stenosis s/p right carotid endarterectomy * Hypertension * history of TIA * Hyperlipidemia * In regards to hypertensive urgency, cardiac medications adjusted. Continue lisinopril, amlodipine, blood pressure improved * Regards to carotid artery stenosis continue aspirin, Plavix, Lipitor * In regards to history of TIA continue aspirin, Plavix, Lipitor Patient Condition at Discharge: Fair Plan - Discharge Summary New Discharge Prescriptions: New amLODIPine [Norvasc] 5 mg PO DAILY 30 Days #30 tab Continue Zinc Gluconate [Zinc] 50 mg PO DAILY Aspirin 81 mg PO DAILY tab lisinopriL [Zestril] 20 mg PO DAILY Apremilast [Otezla] 30 mg PO BID Mv-Min/Folic/K1/Lycopen/Lutein [Centrum Silver Men Tablet] 1 tab PO DAILY Clopidogrel [Plavix] 75 mg PO DAILY #21 tab Rosuvastatin Calcium [Crestor] 40 mg PO HS Discharge Medication List Apremilast [Otezla] 30 mg PO BID 12/26/23 [History] Mv-Min/Folic/K1/Lycopen/Lutein [Centrum Silver Men Tablet] 1 tab PO DAILY 12/26/23 [History] Zinc Gluconate [Zinc] 50 mg PO DAILY 12/26/23 [History] Aspirin 81 mg PO DAILY tab 01/01/24 [Rx] Clopidogrel [Plavix] 75 mg PO DAILY #21 tab 01/01/24 [Rx] Rosuvastatin Calcium [Crestor] 40 mg PO HS 01/19/24 [History] lisinopriL [Zestril] 20 mg PO DAILY 01/19/24 [History] amLODIPine [Norvasc] 5 mg PO DAILY 30 Days #30 tab 01/20/24 [Rx] Follow up Appointment(s)/Referral(s): Jeff Huff MD [Primary Care Provider] - 1-2 days Dustin Strauss MD [STAFF PHYSICIAN] - 1 Week Discharge Disposition: HOME SELF-CARE
[2024-01-20 15:58] VITALS: BP 149/99; PULSE 65
--- NOTE | 2024-01-20 20:23 | PN ---
PROGRESS NOTE SUBJECTIVE: A 58-year-old gentleman with recent history of right carotid endarterectomy, came to hospital with uncontrolled hypertension. He is doing well and is free of symptoms and blood pressures have been well controlled with the medications that I adjusted on him. He is on Zestril 20 daily, aspirin, Lipitor, Plavix, and Norvasc 5 daily. OBJECTIVE: GENERAL: Comfortable at rest. VITAL SIGNS: Stable. NECK: There is jugular venous distention. CHEST: Reveals good air entry bilaterally. HEART: Reveals first and second heart sounds. No gallop. No murmur. ABDOMEN: Soft. EXTREMITIES: Did not reveal any edema. Peripheral pulses are felt. LABORATORY DATA: Labs show a hemoglobin of 14. Creatinine is normal. ASSESSMENT: 1. Uncontrolled hypertension. 2. Carotid stenosis, status post carotid endarterectomy. PLAN: The patient is doing well. He is stable for discharge. He had an echocardiogram on his recent admission that revealed normal LV function. I will see him back in the office and optimize the management of his hypertension, and down the road, he will need a stress test to rule out ischemic heart disease. MMODL / IJN: [id number] /
== END 2024-01-20 15:00 | disposition home or self-care (01) ==
LOC: EC 19:01 → INTOOBSV 22:30 → 3SCARD 22:30 → UNDODISIN 01-20 15:00
PROVIDERS: ADMIT Internal Medicine; ATTEND Internal Medicine
DX: I16.1 Hypertensive emergency (principal); I10 Essential (primary) hypertension; E78.5 Hyperlipidemia, unspecified; Z79.02 Long term (current) use of antithrombotics/antiplatelets; Z79.82 Long term (current) use of aspirin; Z79.899 Other long term (current) drug therapy; Z86.79 Personal history of other diseases of the circulatory system; Z98.890 Other specified postprocedural states; Z86.73 Personal history of transient ischemic attack (TIA), and cerebral infarction without residual deficits
CPT/HCPCS: 96374; 99285; 36415; 80053; 83735; 84484; 85025; 85610; 85730; 71046; 70496; 70450; 70498; G0378 ×3; Q9967; J1920; 93005